=== PATIENT | male | born 1945 | race Caucasian/White ===

== ENCOUNTER → 2016-08-05 | Outpatient (REF) | payer MEDICARE ==
[~2016-08-05] MED LIST: ALEV220T26 PO; ASPI1TAB PO; CALC600T21 PO; DEPA250T32 PO; LISI10TA4 PO; MULTCAP PO; SIMV20TA2 PO; TYLE325T5 PO; VITA-130 PO; VITA500T53 PO; alleve PO
== END ==
LOC: M LAB REF 16:23
PROVIDERS: ATTEND Internal Medicine Medical Oncology
DX: R16.1 Splenomegaly, not elsewhere classified (principal); Z79.899 Other long term (current) drug therapy

== ENCOUNTER → 2016-09-21 | Outpatient (CLI) | payer MEDICARE ==
--- NOTE | 2016-09-21 23:45 | ECWPNPC ---
PATIENT NAME: STEPHAN GARCIA : 1945 GENDER: MALE VISIT DATE: 09/21/2016 DISCHARGE DATE: 09/21/16 1136 VISIT LOCKED DATE TIME: PHYSICIAN: RYAN DELEON RESOURCE: RYAN DELEON REASON FOR APPOINTMENT 1. LOW BACK-INCREASED PAIN HISTORY OF PRESENT ILLNESS HISTORY OF PRESENT ILLNESS: HERE FOR ROUTINE 3MOS F/U.PAIN IN LOW BACK HAS BEEN HIGH PAST MONTH.RATING PAIN VAS 8/10.DESCRIBES PAIN CONSTANT ACHING IN LOW BACK.PATIENT HAS BEEN DEALING WITH /ONCFOR NEWLY DIAGNOSED BLOOD DYSCRASIA REQUIRING PHLEBOTOMY X6 PAST 6 WEEKS.ALSO DEALT WITH KIDNEY STONES. FALL RISK SCREENING: SCREENING :NO FALLS IN THE PAST YEAR CURRENT MEDICATIONS TAKING LISINOPRIL 10 MG TABLET 1 TABLET ORALLY ONCE A DAY TAKING MELOXICAM 15 MG TABLET 1 TABLET ORALLY ONCE A DAY TAKING VITAMIN C 500 MG CAPSULE ORALLY DAILY TAKING ASPIRIN ADULT LOW STRENGTH 81 MG TABLET DELAYED RELEASE 1 TABLET ORALLY ONCE A DAY TAKING MULTIVITAMIN TABLET CHEWABLE ORALLY TAKING SIMVASTATIN 20 MG TABLET 1 TABLET IN THE EVENING ORALLY ONCE A DAY TAKING VITAMIN B12 500 MCG TABLET ORALLY TAKING CALCIUM 600 MG TABLET 1 TABLET WITH MEALS ORALLY DAILY TAKING TAMSULOSIN HCL 0.4 MG CAPSULE 1 CAPSULE ORALLY ONCE A DAY NOT-TAKING ALEVE 220 MG TABLET 1 STRIP ORALLY EVERY 12 HRS MEDICATION LIST REVIEWED AND RECONCILED WITH THE PATIENT PAST MEDICAL HISTORY ARTTHRITIS HYPERTENSION HYPERLIPIDEMIA LOW BACK PAIN ENLARGED SPLEEN BILATERAL KIDNEY STONES L ALLERGIES NONE SOCIAL HISTORY GENERAL: TOBACCO USE ARE YOU A:NONSMOKER LEARNING BARRIERS / SPECIAL NEEDS ORIENTED TO PLAN OF CARE: PATIENT, PAIN MANAGEMENT PATIENT, ORIENTED TO PLAN OF CARE: PATIENT, PAIN MANAGEMENT PATIENT. NEW PATIENT PAIN DIARY TODAY'S VISITNOTES FROM 0-10, WHAT LEVEL IS YOUR PAIN TODAY?0 PAIN CLINIC PFS, CLERGY, PUBLIC HEALTH REFERRALS PFS REFERRAL NEEDED?NO CLERGY REFERRAL NEEDED?NO PUBLIC HEALTH REFERRAL NEEDED?NO WAS THE PROVIDER NOTIFIED OF ANY PERTINENT INFO?NO PFS REFERRAL NEEDED?NO CLERGY REFERRAL NEEDED?NO PUBLIC HEALTH REFERRAL NEEDED?NO WAS THE PROVIDER NOTIFIED OF ANY PERTINENT INFO?NO REVIEW OF SYSTEMS CONSTITUTIONAL: ANY CHANGE IN YOUR MEDICAL CONDITION? YES, HAS AN ENLARGED SPLEEN AND HAS HAD 6 UNITS OF BLOOD DRAWN OFF SINCE 08/05/16 . CHILLS NO . FEVER NO . INFECTION: DO YOU HAVE NEW INFECTIONS? NO . DO YOU HAVE HISTORY OF MRSA? NO . MUSCULOSKELETAL: ANY NEW PATTERNS OF PAIN OR NUMBNESS? NO . GASTROENTEROLOGY: ANY NEW CHANGE IN BOWEL CONTROL? NO . GENITOURINARY: ANY NEW CHANGE IN BLADDER CONTROL? NO . IS THERE A CHANCE YOU COULD BE ? NO . HEMATOLOGY/LYMPH: DO YOU TAKE ANY BLOOD THINNERS? (FOR EXAMPLE- COUMADIN, PLAVIX, AGGRENOX, PLATEL, PRADAXA, OR XARELTO) NO . WHEN WAS YOUR LAST DOSE? DATE: TIME: . NEUROLOGY: HAVE YOU FALLEN IN THE PAST 6 MONTHS? NO . ANY NEW EXTREMITY NUMBNESS OR WEAKNESS? NO . CARDIOLOGY: DO YOU HAVE A PACEMAKER OR DEFIBRILLATOR? NO . RESPIRATORY: HAVE YOU BEEN SICK IN THE PAST WEEK? YES, COLD LAST WEEK, STARTED FEELING BETTER 09/18 . FEVER NO . FLU LIKE SYMPTOMS? NO . COUGH NO . INTEGUMENTARY: DO YOU HAVE ANY RASHES OR OPEN SORES? YES, BUTTOCKS . ALLERGIC/IMMUNO: ARE YOU ALLERGIC TO SHELLFISH OR IV DYE? NO . ANY NEW ALLERGIES? NO . PSYCHIATRIC: DO YOU HAVE THOUGHTS OF HURTING YOURSELF OR SOMEONE ELSE? NO . ARE YOU ABUSED, NEGLECTED, OR IN AN UNSAFE ENVIRONMENT? NO . ENDOCRINOLOGY: ARE YOU DIABETIC? NO . OTHER: DO YOU NEED ANY PRESCRIPTIONS? NO . IF YES, PLEASE LIST: ____ . ANY NEW PROBLEMS WITH YOUR MEDICATIONS? NO . WHEN DID YOU LAST EAT? ____ . WHEN DID YOU LAST DRINK? ____ . WHAT DID YOU LAST DRINK? ____ . NAME OF PERSON DRIVING YOU HOME? ____ . DO YOU HAVE ANY OTHER QUESTIONS OR CONCERNS YES WOULD LIKE TO DISCUSS ANOTHER INJECTION BUT NOT SURE IF POSSIBLE WITH ENLARGED SPLEEN . REVIEWED BY: PROVIDER: RYAN UREÑA . VITAL SIGNS WT 240.8 LBS, HT 68.5 IN, BMI 36.08 INDEX, BP 140/76 MM HG, HR 67 /MIN, RR 16 /MIN, TEMP 97.1 F, OXYGEN SAT % 94%, NA INITIALS SC 11:01, REVIEWED BY: ANN. EXAMINATION GENERAL EXAMINATION: LUNGS:LUNG SOUNDS ARE CLEAR. HEART:HEART RATE REGULAR. MUSCULOSKELETAL:*. MUSCULOSKELETAL:*, MUSCLE STRENGTH TESTING 5/5 BILATERAL, PALPATION: NEGATIVE FOR PAIN OVER L/S SPINE. NEGATIVE FOR PAIN OVER L/S PARSPINALS. 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 RECOMMEND REMOVING ALL THROW RUGS. 2. RECOMMEND NIGHT LIGHTS 3. RECOMMEND WEARING RUBBER SOLED SHOES AND TO NOT GO BAREFOOT. 4.. ADVISED TO CHANGE POSITION SLOWLY FROM SUPINE TO STANDING TO AVOID DIZZINESS. 5. ADVISED TO USE ASSISTIVE DEVICE SUCH CANE OR WALKER 6. USE LIFELINE SERVICES OR KEEP PORTABLE PHONE READILY AVAILABLE. PROCEDURE CODES FA211 ESTABILISHED PATIENT [facility] FACILITY CHARGE G8938 BMI CALC BUT PT NOT ELIG F/U PLAN G8783 BP SCR PRFRM RCMDD DEFIND SCR INTVL G8730 PAIN ASSESS POS TOOL F/U PLAN DOC 3016F PT SCRND UNHLTHY [place] USE 1123F ACP DISCUSS/DSCN MKR DOCD 1036F TOBACCO NON-USER 0518F FALL PLAN OF CARE DOCD G8427 DOC MEDS VERIFIED W/[place] 3288F FALL RISK ASSESSMENT DOCD DISPOSITION & COMMUNICATION FOLLOW UP 2 MONTHS ELECTRONICALLY SIGNED BY NIRANJAN DAVIES ON 09/21/2016 AT 01:02 PM EST DISCLAIMER : THIS IS A VISIT SUMMARY EXTRACTED FROM THE [employer] CHART. IT IS NOT A COPY OF THE [employer] PROGRESS NOTE. JANUARY
== END ==
LOC: M PAIN 10:40
PROVIDERS: ATTEND Nurse Practitioner Family
DX: Z09 Encounter for follow-up examination after completed treatment for conditions other than malignant neoplasm (principal); G89.29 Other chronic pain; M54.42 Lumbago with sciatica, left side; M48.06 Spinal stenosis, lumbar region; D75.9 Disease of blood and blood-forming organs, unspecified; M19.90 Unspecified osteoarthritis, unspecified site; I10 Essential (primary) hypertension; E78.5 Hyperlipidemia, unspecified; R16.1 Splenomegaly, not elsewhere classified; N20.0 Calculus of kidney; Z79.82 Long term (current) use of aspirin; Z79.899 Other long term (current) drug therapy

== ENCOUNTER → 2016-09-30 | Outpatient (REF) | payer MEDICARE ==
[2016-09-30 18:04] LABS: FERRITIN 6 NG/ML (26-388)
== END ==
LOC: M LAB REF 16:48
PROVIDERS: ATTEND Internal Medicine Medical Oncology
DX: D45 Polycythemia vera (principal)

== ENCOUNTER → 2016-10-28 | Outpatient (REF) | payer MEDICARE | LOC: M LAB REF 17:18 | PROVIDERS: ATTEND Internal Medicine Medical Oncology | DX: D45 Polycythemia vera (principal) ==

== ENCOUNTER → 2016-11-25 | Outpatient (CLI) | payer MEDICARE ==
--- NOTE | 2016-11-26 00:13 | ECWPNPC ---
PATIENT NAME: STEPHAN GARCIA : 1945 GENDER: MALE VISIT DATE: 11/25/2016 DISCHARGE DATE: 11/25/16 1111 VISIT LOCKED DATE TIME: PHYSICIAN: RYAN DELEON RESOURCE: RYAN DELEON REASON FOR APPOINTMENT 1. LOW BACK HISTORY OF PRESENT ILLNESS HISTORY OF PRESENT ILLNESS: PAIN THE PATIENT DESCRIBES THE PAIN... FALL RISK SCREENING: SCREENING :NO FALLS IN THE PAST YEAR CURRENT MEDICATIONS TAKING LISINOPRIL 10 MG TABLET 1 TABLET ORALLY ONCE A DAY TAKING MELOXICAM 15 MG TABLET 1 TABLET ORALLY ONCE A DAY TAKING VITAMIN C 500 MG CAPSULE ORALLY DAILY TAKING ASPIRIN ADULT LOW STRENGTH 81 MG TABLET DELAYED RELEASE 1 TABLET ORALLY ONCE A DAY TAKING MULTIVITAMIN TABLET CHEWABLE ORALLY TAKING SIMVASTATIN 20 MG TABLET 1 TABLET IN THE EVENING ORALLY ONCE A DAY TAKING VITAMIN B12 500 MCG TABLET 1 TABLET ORALLY DAILY TAKING CALCIUM 600 MG TABLET 1 TABLET WITH MEALS ORALLY DAILY TAKING TAMSULOSIN HCL 0.4 MG CAPSULE 1 CAPSULE ORALLY ONCE A DAY NOT-TAKING ALEVE 220 MG TABLET 1 STRIP ORALLY EVERY 12 HRS MEDICATION LIST REVIEWED AND RECONCILED WITH THE PATIENT PAST MEDICAL HISTORY ARTTHRITIS HYPERTENSION HYPERLIPIDEMIA LOW BACK PAIN ENLARGED SPLEEN BILATERAL KIDNEY STONES L ALLERGIES N.K.D.A. SOCIAL HISTORY GENERAL: PAIN CLINIC PFS, CLERGY, PUBLIC HEALTH REFERRALS CLERGY REFERRAL NEEDED?NO WAS THE PROVIDER NOTIFIED OF ANY PERTINENT INFO?NO PFS REFERRAL NEEDED?NO PUBLIC HEALTH REFERRAL NEEDED?NO PATIENT: ____. REVIEW OF SYSTEMS CONSTITUTIONAL: ANY CHANGE IN YOUR MEDICAL CONDITION? NO . CHILLS NO . FEVER NO . INFECTION: DO YOU HAVE NEW INFECTIONS? NO . DO YOU HAVE HISTORY OF MRSA? NO . MUSCULOSKELETAL: ANY NEW PATTERNS OF PAIN OR NUMBNESS? NO . GASTROENTEROLOGY: ANY NEW CHANGE IN BOWEL CONTROL? NO . GENITOURINARY: ANY NEW CHANGE IN BLADDER CONTROL? NO . IS THERE A CHANCE YOU COULD BE ? NO . HEMATOLOGY/LYMPH: DO YOU TAKE ANY BLOOD THINNERS? (FOR EXAMPLE- COUMADIN, PLAVIX, AGGRENOX, PLATEL, PRADAXA, OR XARELTO) NO . WHEN WAS YOUR LAST DOSE? DATE: TIME: . NEUROLOGY: HAVE YOU FALLEN IN THE PAST 6 MONTHS? NO . ANY NEW EXTREMITY NUMBNESS OR WEAKNESS? NO . CARDIOLOGY: DO YOU HAVE A PACEMAKER OR DEFIBRILLATOR? NO . RESPIRATORY: HAVE YOU BEEN SICK IN THE PAST WEEK? NO . FEVER NO . FLU LIKE SYMPTOMS? NO . COUGH NO . INTEGUMENTARY: DO YOU HAVE ANY RASHES OR OPEN SORES? NO . ALLERGIC/IMMUNO: ARE YOU ALLERGIC TO SHELLFISH OR IV DYE? NO . ANY NEW ALLERGIES? NO . PSYCHIATRIC: DO YOU HAVE THOUGHTS OF HURTING YOURSELF OR SOMEONE ELSE? NO . ARE YOU ABUSED, NEGLECTED, OR IN AN UNSAFE ENVIRONMENT? NO . ENDOCRINOLOGY: ARE YOU DIABETIC? NO . OTHER: DO YOU NEED ANY PRESCRIPTIONS? NO . IF YES, PLEASE LIST: ____ . ANY NEW PROBLEMS WITH YOUR MEDICATIONS? NO . WHEN DID YOU LAST EAT? ____ . WHEN DID YOU LAST DRINK? ____ . WHAT DID YOU LAST DRINK? ____ . NAME OF PERSON DRIVING YOU HOME? ____ . DO YOU HAVE ANY OTHER QUESTIONS OR CONCERNS NO . REVIEWED BY: PROVIDER: RYAN UREÑA . VITAL SIGNS WT 240.8 LBS, HT 68.5 IN, BMI 36.08 INDEX, BP 145/76 MM HG, HR 65 /MIN, RR 16 /MIN, TEMP 98.5 F, OXYGEN SAT % 94%, NA INITIALS SC 10:19, REVIEWED BY: CS. EXAMINATION GENERAL EXAMINATION: LUNGS:LUNG SOUNDS ARE CLEAR. HEART:HEART RATE REGULAR. MUSCULOSKELETAL:*, MUSCLE STRENGTH TESTING 5/5 BILATERAL, PALPATION: POSITIVE FOR PAIN OVER L/S SPINE. POSITIVE FOR PAIN OVER L/S PARASPINALS.TRIGGER POINTS ELICITED WITH PALPATION LUMBAR PARASPINAL. 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 REFERRAL TO:PHYSICAL THERAPIST REASON:MYOFSACIAL PAIN LOW BACK-MYOFASCIAL RELEASE-2X WK X 8WK LUMBAR SPINAL STENOSIS TRIGGER POINT 1-2 RYAN HEAD 11/25/2016 10:57:25 AM > BILATERAL LUMBAR PARASPINALS PROCEDURE CODES FA211 ESTABILISHED PATIENT [facility] FACILITY CHARGE DISPOSITION & COMMUNICATION FOLLOW UP 2WK POST (REASON: TRIGGER POINT INJECTION LUMBAR PARASPINALS) ELECTRONICALLY SIGNED BY NIRANJAN DAVIES ON 11/25/2016 AT 02:03 PM EDT DISCLAIMER : THIS IS A VISIT SUMMARY EXTRACTED FROM THE [employer] CHART. IT IS NOT A COPY OF THE [employer] PROGRESS NOTE. JANUARY
== END ==
LOC: M PAIN 10:40
PROVIDERS: ATTEND Nurse Practitioner Family
DX: G89.29 Other chronic pain (principal); M54.42 Lumbago with sciatica, left side; M48.06 Spinal stenosis, lumbar region; M79.1 Myalgia; M19.90 Unspecified osteoarthritis, unspecified site; I10 Essential (primary) hypertension; E78.5 Hyperlipidemia, unspecified; Z79.82 Long term (current) use of aspirin; Z79.899 Other long term (current) drug therapy

== ENCOUNTER → 2016-12-14 | Outpatient (CLI) | payer MEDICARE ==
[~2016-12-14] MED LIST changes: +BUPIVACAINE HCL 0.25% 10 ML VIAL As Ordered ONE; +BUPIVACAINE HCL 0.25% 30 ML VIAL As Ordered ONE; +TRIAMCINOLONE ACETONIDE SUSP 40 MG/ML VIAL (J3301) As Ordered ONE
--- NOTE | 2016-12-19 23:40 | ECWPNPC ---
PATIENT NAME: STEPHAN GARCIA : 1945 GENDER: MALE VISIT DATE: 12/14/2016 DISCHARGE DATE: 12/14/16 1510 VISIT LOCKED DATE TIME: PHYSICIAN: JESIKA PAIZ RESOURCE: JESIKA PAIZ REASON FOR APPOINTMENT 1. TPI HISTORY OF PRESENT ILLNESS HISTORY OF PRESENT ILLNESS: PAIN THE PATIENT DESCRIBES THE PAIN... FALL RISK SCREENING: SCREENING :NO FALLS IN THE PAST YEAR CURRENT MEDICATIONS TAKING LISINOPRIL 10 MG TABLET 1 TABLET ORALLY ONCE A DAY, NOTES: 12/14/16 AT 06 TAKING MELOXICAM 15 MG TABLET 1 TABLET ORALLY ONCE A DAY, NOTES: 12/14/16 AT 629 TAKING VITAMIN C 500 MG CAPSULE ORALLY DAILY, NOTES: 12/14/16 AT 629 TAKING ASPIRIN ADULT LOW STRENGTH 81 MG TABLET DELAYED RELEASE 1 TABLET ORALLY ONCE A DAY, NOTES: 12/14/16 AT 629 TAKING MULTIVITAMIN TABLET CHEWABLE ORALLY DAILY, NOTES: 12/14/16 AT 629 TAKING SIMVASTATIN 20 MG TABLET 1 TABLET IN THE EVENING ORALLY ONCE A DAY, NOTES: 12/13/16 AT 1999 TAKING VITAMIN B12 500 MCG TABLET 1 TABLET ORALLY DAILY, NOTES: 12/14/16 AT 629 TAKING CALCIUM 600 MG TABLET 1 TABLET WITH MEALS ORALLY DAILY, NOTES: 12/14/16 AT 629 TAKING TAMSULOSIN HCL 0.4 MG CAPSULE 1 CAPSULE ORALLY ONCE A DAY, NOTES: 12/14/16 AT 629 NOT-TAKING ALEVE 220 MG TABLET 1 STRIP ORALLY EVERY 12 HRS MEDICATION LIST REVIEWED AND RECONCILED WITH THE PATIENT PAST MEDICAL HISTORY ARTTHRITIS HYPERTENSION HYPERLIPIDEMIA LOW BACK PAIN ENLARGED SPLEEN BILATERAL KIDNEY STONES L ALLERGIES N.K.D.A. REVIEW OF SYSTEMS CONSTITUTIONAL: ANY CHANGE IN YOUR MEDICAL CONDITION? NO . CHILLS NO . FEVER NO . INFECTION: DO YOU HAVE NEW INFECTIONS? NO . DO YOU HAVE HISTORY OF MRSA? NO . MUSCULOSKELETAL: ANY NEW PATTERNS OF PAIN OR NUMBNESS? NO . GASTROENTEROLOGY: ANY NEW CHANGE IN BOWEL CONTROL? NO . GENITOURINARY: ANY NEW CHANGE IN BLADDER CONTROL? NO . IS THERE A CHANCE YOU COULD BE ? NO . HEMATOLOGY/LYMPH: DO YOU TAKE ANY BLOOD THINNERS? (FOR EXAMPLE- COUMADIN, PLAVIX, AGGRENOX, PLATEL, PRADAXA, OR XARELTO) NO . WHEN WAS YOUR LAST DOSE? DATE: TIME: . NEUROLOGY: HAVE YOU FALLEN IN THE PAST 6 MONTHS? NO . ANY NEW EXTREMITY NUMBNESS OR WEAKNESS? NO . CARDIOLOGY: DO YOU HAVE A PACEMAKER OR DEFIBRILLATOR? NO . RESPIRATORY: HAVE YOU BEEN SICK IN THE PAST WEEK? NO . FEVER NO . FLU LIKE SYMPTOMS? NO . COUGH NO . INTEGUMENTARY: DO YOU HAVE ANY RASHES OR OPEN SORES? NO . ALLERGIC/IMMUNO: ARE YOU ALLERGIC TO SHELLFISH OR IV DYE? NO . ANY NEW ALLERGIES? NO . PSYCHIATRIC: DO YOU HAVE THOUGHTS OF HURTING YOURSELF OR SOMEONE ELSE? NO . ARE YOU ABUSED, NEGLECTED, OR IN AN UNSAFE ENVIRONMENT? NO . ENDOCRINOLOGY: ARE YOU DIABETIC? NO . OTHER: DO YOU NEED ANY PRESCRIPTIONS? NO . IF YES, PLEASE LIST: ____ . ANY NEW PROBLEMS WITH YOUR MEDICATIONS? NO . WHEN DID YOU LAST EAT? 12/14/16 AT 0600 . WHEN DID YOU LAST DRINK? 12/14/16 AT 0630 . WHAT DID YOU LAST DRINK? WATER . NAME OF PERSON DRIVING YOU HOME? GORDON . DO YOU HAVE ANY OTHER QUESTIONS OR CONCERNS NO . REVIEWED BY: PROVIDER: . VITAL SIGNS WT 250.0 LBS, HT 68.5 IN, BMI 37.46 INDEX, BP 143/75 MM HG, HR 72 /MIN, RR 16 /MIN, TEMP 97.7 F, OXYGEN SAT % 96%, NA INITIALS TL 1325, REVIEWED BY: CS. ASSESSMENTS MYALGIA - M79.1 (PRIMARY) PROCEDURES PN TRIGGER POINT INJECTION WITH STEROIDS PRE PROCEDURE DIAGNOSIS 1. MYALGIA 2. PAIN AT BILATERAL LOWER BACK AREA POST PROCEDURE DIAGNOSIS 1. MYALGIA 2. PAIN AT BILATERAL LOWER BACK AREA PROCEDURE TRIGGER POINT INJECTION AT BILATERAL LOWER BACK AREA SURGEON DR. JESIKA PAIZ MANAGER AVIATION NONE ANESTHESIA LOCAL PRE PROCEDURE NOTE THE PATIENT HAS A HISTORY OF CHRONIC PAIN AT THE RIGHT AND LEFT LOWER BACK AREA. I EVALUATE THE PATIENT AND REVIEWED THE CHART. THERE IS EVIDENCE OF BANDS OF TISSUE WITH RESTRICTION OF MOVEMENT AND PRESENCE OF TRIGGER POINT AT THE AFFECTED AREA. I WENT OVER THE RISKS, ALTERNATIVES, AND BENEFITS ASSOCIATED WITH THIS PROCEDURE. THE PATIENT WOULD LIKE TO PROCEED AND GIVE CONSENT TO PERFORMED THE PROCEDURE. THE PATIENT DENIES UNEXPLAINABLE WEIGHT LOSS, FEVER, CHILLS, OR NEW CHANGES IN URINARY OR BOWEL CONTROL DESCRIPTION OF PROCEDURE THE PATIENT WAS BROUGHT TO THE PROCEDURE ROOM AND PLACED IN THE SITTING POSITION. THE AREA WAS CLEANED WITH ALCOHOL. THE PROCEDURE WAS DONE USING ASEPTIC STERILE TECHNIQUE. I CHECKED LATERALITY AND THE LEVEL WHERE THE PROCEDURE WAS GOING TO BE PERFORMED WITH THE PATIENT AND THE SUPPORTING STAFF AT THE MOMENT OF THE TIME OUT IN THE PROCEDURE ROOM. USING A 25-GAUGE NEEDLE, TRIGGER POINTS WERE INJECTED AT THE RIGHT AND LEFT LOWER BACK AREA WITH A TOTAL OF 40 ML OF BUPIVACAINE 0.25% AND KENALOG 40 MG. THERE WAS NO EVIDENCE OF BLOOD, PARESTHESIA OR CEREBROSPINAL FLUID DURING THE PROCEDURE. THE PATIENT WAS SENT TO THE RECOVERY ROOM. THE PATIENT WAS MOVING THE EXTREMITIES AND DOING WELL. THERE WAS NO COMPLICATION DURING THE PROCEDURE POST PROCEDURE NOTE THE PATIENT WILL BE SEEN IN A FOLLOW UP IN THE NEXT FEW WEEKS. INSTRUCTIONS WERE GIVEN, QUESTIONS WERE ANSWERED, AND THE PATIENT EXPRESSED UNDERSTANDING AND AGREES WITH THE PLAN. I, KIM VILLEGAS, DOCUMENTED THE ABOVE INFORMATION ACTING A SCRIBE FOR DR. PAIZ. I HAVE REVIEWED THE ABOVE DOCUMENT, WRITTEN BY KIM VALLEJO AND I VERIFY THAT IT IS ACCURATE PROCEDURE CODES 62779 INJ TRIGGER POINT 08/03 [facility] [place] & COMMUNICATION FOLLOW UP 3 WEEKS ELECTRONICALLY SIGNED BY JESIKA PAIZ MD ON 12/19/2016 AT 07:16 PM EDT DISCLAIMER : THIS IS A VISIT SUMMARY EXTRACTED FROM THE [employer] CHART. IT IS NOT A COPY OF THE [employer] PROGRESS NOTE. JANUARY
== END ==
LOC: M PAIN 13:20
PROVIDERS: ATTEND Anesthesiology
DX: G89.29 Other chronic pain (principal); M79.1 Myalgia; M54.5 Low back pain; M19.90 Unspecified osteoarthritis, unspecified site; I10 Essential (primary) hypertension; E78.5 Hyperlipidemia, unspecified; Z79.82 Long term (current) use of aspirin; Z79.899 Other long term (current) drug therapy
CPT/HCPCS: 20552; J3301

== ENCOUNTER → 2017-01-04 | Outpatient (CLI) | payer MEDICARE ==
[~2017-01-04] MED LIST changes: -BUPIVACAINE HCL 0.25% 10 ML VIAL As Ordered ONE; -BUPIVACAINE HCL 0.25% 30 ML VIAL As Ordered ONE; -TRIAMCINOLONE ACETONIDE SUSP 40 MG/ML VIAL (J3301) As Ordered ONE
--- NOTE | 2017-01-05 00:41 | ECWPNPC ---
PATIENT NAME: STEPHAN GARCIA : 1945 GENDER: MALE VISIT DATE: 01/04/2017 DISCHARGE DATE: 01/04/17 1056 VISIT LOCKED DATE TIME: PHYSICIAN: RYAN DELEON RESOURCE: RYAN DELEON REASON FOR APPOINTMENT 1. POST TPI HISTORY OF PRESENT ILLNESS HISTORY OF PRESENT ILLNESS: HERE FOR POST PROCEDURE F/U.HAD TPI 12-14-16 AND STARTED PT LAST MONTH.REALLY SHOWING NO IMPROVEMENT POST PROCEDURE AND WITH PT.RATING PAIN VAS 7/10.PAIN IS LOCATED ACROSS LOW BACK R>L.DISCUSSED MEDICATION AND TREATMENT OPTIONS.PAIN IS AGGREVATED BY RIDING CONVENTIONS ASSISTANT AND RELIEVED SOMEWHAT WITH REST. PAIN THE PATIENT DESCRIBES THE PAIN... FALL RISK SCREENING: SCREENING :NO FALLS IN THE PAST YEAR CURRENT MEDICATIONS TAKING LISINOPRIL 10 MG TABLET 1 TABLET ORALLY ONCE A DAY, NOTES: 12/14/16 AT 06 TAKING MELOXICAM 15 MG TABLET 1 TABLET ORALLY ONCE A DAY, NOTES: 12/14/16 AT 629 TAKING VITAMIN C 500 MG CAPSULE ORALLY DAILY, NOTES: 12/14/16 AT 629 TAKING ASPIRIN ADULT LOW STRENGTH 81 MG TABLET DELAYED RELEASE 1 TABLET ORALLY ONCE A DAY, NOTES: 12/14/16 AT 629 TAKING MULTIVITAMIN TABLET CHEWABLE ORALLY DAILY, NOTES: 12/14/16 AT 629 TAKING SIMVASTATIN 20 MG TABLET 1 TABLET IN THE EVENING ORALLY ONCE A DAY, NOTES: 12/13/16 AT 1999 TAKING VITAMIN B12 500 MCG TABLET 1 TABLET ORALLY DAILY, NOTES: 12/14/16 AT 629 TAKING CALCIUM 600 MG TABLET 1 TABLET WITH MEALS ORALLY DAILY, NOTES: 12/14/16 AT 629 TAKING TAMSULOSIN HCL 0.4 MG CAPSULE 1 CAPSULE ORALLY ONCE A DAY, NOTES: 12/14/16 AT 629 NOT-TAKING ALEVE 220 MG TABLET 1 STRIP ORALLY EVERY 12 HRS MEDICATION LIST REVIEWED AND RECONCILED WITH THE PATIENT PAST MEDICAL HISTORY ARTTHRITIS HYPERTENSION HYPERLIPIDEMIA LOW BACK PAIN ENLARGED SPLEEN BILATERAL KIDNEY STONES L ALLERGIES N.K.D.A. SURGICAL HISTORY TONSILLECTOMY & ADENOIDECTOMY L KNEE ARTHROSCOPY HOSPITALIZATION/MAJOR DIAGNOSTIC PROCEDURE T&A REVIEW OF SYSTEMS CONSTITUTIONAL: ANY CHANGE IN YOUR MEDICAL CONDITION? YES, PT STATES SPLEEN IS ENLARGED, DR ROBERTS IS COVERING HIM FOR THIS . CHILLS NO . FEVER NO . INFECTION: DO YOU HAVE NEW INFECTIONS? NO . DO YOU HAVE HISTORY OF MRSA? NO . MUSCULOSKELETAL: ANY NEW PATTERNS OF PAIN OR NUMBNESS? YES, PT STATES TPI DONE 12/14/16, PRE PROCEDURE PAIN WAS 8/10, POST PROCEDURE PAIN WAS 6-7/10 . GASTROENTEROLOGY: ANY NEW CHANGE IN BOWEL CONTROL? NO . GENITOURINARY: ANY NEW CHANGE IN BLADDER CONTROL? NO . IS THERE A CHANCE YOU COULD BE ? NO . HEMATOLOGY/LYMPH: DO YOU TAKE ANY BLOOD THINNERS? (FOR EXAMPLE- COUMADIN, PLAVIX, AGGRENOX, PLATEL, PRADAXA, OR XARELTO) NO . WHEN WAS YOUR LAST DOSE? DATE: TIME: . NEUROLOGY: HAVE YOU FALLEN IN THE PAST 6 MONTHS? NO . ANY NEW EXTREMITY NUMBNESS OR WEAKNESS? NO . CARDIOLOGY: DO YOU HAVE A PACEMAKER OR DEFIBRILLATOR? NO . RESPIRATORY: HAVE YOU BEEN SICK IN THE PAST WEEK? NO . FEVER NO . FLU LIKE SYMPTOMS? NO . COUGH NO . INTEGUMENTARY: DO YOU HAVE ANY RASHES OR OPEN SORES? NO . ALLERGIC/IMMUNO: ARE YOU ALLERGIC TO SHELLFISH OR IV DYE? NO . ANY NEW ALLERGIES? NO . PSYCHIATRIC: DO YOU HAVE THOUGHTS OF HURTING YOURSELF OR SOMEONE ELSE? NO . ARE YOU ABUSED, NEGLECTED, OR IN AN UNSAFE ENVIRONMENT? NO . ENDOCRINOLOGY: ARE YOU DIABETIC? NO . OTHER: DO YOU NEED ANY PRESCRIPTIONS? NO . IF YES, PLEASE LIST: ____ . ANY NEW PROBLEMS WITH YOUR MEDICATIONS? NO . WHEN DID YOU LAST EAT? ____ . WHEN DID YOU LAST DRINK? ____ . WHAT DID YOU LAST DRINK? ____ . NAME OF PERSON DRIVING YOU HOME? ____ . DO YOU HAVE ANY OTHER QUESTIONS OR CONCERNS NO . REVIEWED BY: PROVIDER: RYAN UREÑA . VITAL SIGNS WT 248 LBS, HT 68.5 IN, BMI 37.16 INDEX, BP 131/69 MM HG, HR 78 /MIN, RR 18 /MIN, TEMP 98.8 F, OXYGEN SAT % 94, SAFE IN ENV? (Y/N) Y, REVIEWED BY: EM. EXAMINATION GENERAL EXAMINATION: LUNGS:LUNG SOUNDS ARE CLEAR. HEART:HEART RATE REGULAR. MUSCULOSKELETAL:*, MUSCLE STRENGTH TESTING 5/5 BILATERAL, PALPATION: POSITIVE FOR PAIN OVER L/S SPINE. POSITIVE FOR PAIN OVER L/S PARASPINALS.TRIGGER POINTS ELICITED WITH PALPATION LUMBAR PARASPINAL. MRI L/S [id number]-[id number]. 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 MURPHY-ONCOLOGY , I AM GOING TO REQUEST A THERAPEUTIC LUMBAR FACET BLOCK L3/4-L4/5 BILAT. PROCEDURE CODES FA211 ESTABILISHED PATIENT [facility] CHARGE DISPOSITION & COMMUNICATION FOLLOW UP 6 WEEKS (REASON: , I AM GOING TO REQUEST A THERAPEUTIC LUMBAR FACET BLOCK L3/4-L4/5 BILAT.) ELECTRONICALLY SIGNED BY NIRANJAN DAVIES ON 01/04/2017 AT 01:22 PM EDT DISCLAIMER : THIS IS A VISIT SUMMARY EXTRACTED FROM THE [employer] CHART. IT IS NOT A COPY OF THE [employer] PROGRESS NOTE. JANUARY
== END ==
LOC: M PAIN 10:00
PROVIDERS: ATTEND Nurse Practitioner Family
DX: G89.29 Other chronic pain (principal); M54.42 Lumbago with sciatica, left side; M48.06 Spinal stenosis, lumbar region; M79.1 Myalgia; M19.90 Unspecified osteoarthritis, unspecified site; I10 Essential (primary) hypertension; E78.5 Hyperlipidemia, unspecified; Z88.8 Allergy status to other drugs, medicaments and biological substances; Z79.82 Long term (current) use of aspirin; Z79.899 Other long term (current) drug therapy

== ENCOUNTER → 2017-01-13 | Outpatient (CLI) | payer MEDICARE ==
[~2017-01-13] MED LIST changes: +BUPIVACAINE HCL 0.25% 30 ML VIAL As Ordered ONE; -CALC600T21 PO; +CALC600T60 PO; +ISOVUE-M 300 61% 15ML VIAL (Q9967) As Ordered ONE; +LIDOCAINE 1% SDV INJ 30 ML VIAL As Ordered ONE; +TRIAMCINOLONE ACETONIDE SUSP 40 MG/ML VIAL (J3301) As Ordered ONE; -VITA-130 PO; +VITA500T PO
--- NOTE | 2017-01-13 17:00 | REP ---
FACET BLOCK: The images were reviewed with Dr. Penaloza. The patient has a history of low back pain. The portable C-ARM was provided in the OR for Dr. Rodas for fluoroscopic guidance. 2 intraoperative fluoroscopic spot films were obtained for needle placement verification for bilateral lumbar facet injection. The films are on the PACs system and are available for review. 52 seconds of fluoroscopic time was utilized for this procedure. Reviewed by YONNY Otero 01/14/2017 03:11 PEdited and Signed by Chance Penaloza MD 01/14/2017 04:32 P
--- NOTE | 2017-01-22 00:13 | ECWPNPC ---
PATIENT NAME: STEPHAN GARCIA : 1945 GENDER: MALE VISIT DATE: 01/13/2017 DISCHARGE DATE: 01/13/17 1025 VISIT LOCKED DATE TIME: PHYSICIAN: JESIKA PAIZ RESOURCE: JESIKA PAIZ REASON FOR APPOINTMENT 1. LUMBAR FACET BILATERAL HISTORY OF PRESENT ILLNESS HISTORY OF PRESENT ILLNESS: PAIN THE PATIENT DESCRIBES THE PAIN... FALL RISK SCREENING: SCREENING :NO FALLS IN THE PAST YEAR CURRENT MEDICATIONS TAKING LISINOPRIL 10 MG TABLET 1 TABLET ORALLY ONCE A DAY, NOTES: 01/13/17629 TAKING MELOXICAM 15 MG TABLET 1 TABLET ORALLY ONCE A DAY, NOTES: 01/13/17629 TAKING VITAMIN C 500 MG CAPSULE ORALLY DAILY, NOTES: 01/13/17629 TAKING ASPIRIN ADULT LOW STRENGTH 81 MG TABLET DELAYED RELEASE 1 TABLET ORALLY ONCE A DAY, NOTES: 01/13/17629 TAKING MULTIVITAMIN TABLET CHEWABLE ORALLY DAILY, NOTES: 01/13/17629 TAKING SIMVASTATIN 20 MG TABLET 1 TABLET IN THE EVENING ORALLY ONCE A DAY, NOTES: 01/12/172099 TAKING VITAMIN B12 500 MCG TABLET 1 TABLET ORALLY DAILY, NOTES: 01/13/17629 TAKING CALCIUM 600 MG TABLET 1 TABLET WITH MEALS ORALLY DAILY, NOTES: 01/13/17629 TAKING TAMSULOSIN HCL 0.4 MG CAPSULE 1 CAPSULE ORALLY ONCE A DAY, NOTES: 01/12/17629 NOT-TAKING CYMBALTA 30 MG CAPSULE DELAYED RELEASE PARTICLES 1 CAPSULE ORALLY DAILY NOT-TAKING ALEVE 220 MG TABLET 1 STRIP ORALLY EVERY 12 HRS MEDICATION LIST REVIEWED AND RECONCILED WITH THE PATIENT PAST MEDICAL HISTORY ARTTHRITIS HYPERTENSION HYPERLIPIDEMIA LOW BACK PAIN ENLARGED SPLEEN BILATERAL KIDNEY STONES L ALLERGIES CYMBALTA: HYPER AND JITTERY: SIDE EFFECTS REVIEW OF SYSTEMS REVIEWED BY: PROVIDER: . CONSTITUTIONAL: ANY CHANGE IN YOUR MEDICAL CONDITION? NO . CHILLS NO . FEVER NO . INFECTION: DO YOU HAVE NEW INFECTIONS? NO . DO YOU HAVE HISTORY OF MRSA? NO . MUSCULOSKELETAL: ANY NEW PATTERNS OF PAIN OR NUMBNESS? NO . GASTROENTEROLOGY: ANY NEW CHANGE IN BOWEL CONTROL? NO . GENITOURINARY: ANY NEW CHANGE IN BLADDER CONTROL? NO . IS THERE A CHANCE YOU COULD BE ? NO . HEMATOLOGY/LYMPH: DO YOU TAKE ANY BLOOD THINNERS? (FOR EXAMPLE- COUMADIN, PLAVIX, AGGRENOX, PLATEL, PRADAXA, OR XARELTO) NO . WHEN WAS YOUR LAST DOSE? DATE: TIME: . NEUROLOGY: HAVE YOU FALLEN IN THE PAST 6 MONTHS? NO . ANY NEW EXTREMITY NUMBNESS OR WEAKNESS? NO . CARDIOLOGY: DO YOU HAVE A PACEMAKER OR DEFIBRILLATOR? NO . RESPIRATORY: HAVE YOU BEEN SICK IN THE PAST WEEK? NO . FEVER NO . FLU LIKE SYMPTOMS? NO . COUGH NO . INTEGUMENTARY: DO YOU HAVE ANY RASHES OR OPEN SORES? NO . ALLERGIC/IMMUNO: ARE YOU ALLERGIC TO SHELLFISH OR IV DYE? NO . ANY NEW ALLERGIES? NO . PSYCHIATRIC: DO YOU HAVE THOUGHTS OF HURTING YOURSELF OR SOMEONE ELSE? NO . ARE YOU ABUSED, NEGLECTED, OR IN AN UNSAFE ENVIRONMENT? NO . ENDOCRINOLOGY: ARE YOU DIABETIC? NO . OTHER: DO YOU NEED ANY PRESCRIPTIONS? NO . IF YES, PLEASE LIST: ____ . ANY NEW PROBLEMS WITH YOUR MEDICATIONS? YES, HE STOPPED THE CYMBALTA BECAUSE IT MADE HIM HYPER AND JITTERY. . WHEN DID YOU LAST EAT? 01/12/17 2100 . WHEN DID YOU LAST DRINK? 01/13/17 0630 . WHAT DID YOU LAST DRINK? WATER . NAME OF PERSON DRIVING YOU HOME? GORDON . DO YOU HAVE ANY OTHER QUESTIONS OR CONCERNS NO . VITAL SIGNS WT 244 LBS, HT 68.5 IN, BMI 36.56 INDEX, BP 143/68 MM HG, HR 62 /MIN, RR 18 /MIN, TEMP 98.6 F, OXYGEN SAT % 96%, NA INITIALS SC 08:49, REVIEWED BY: AD. ASSESSMENTS SPONDYLOSIS WITHOUT MYELOPATHY OR RADICULOPATHY, LUMBAR REGION - M47.816 (PRIMARY) SPONDYLOSIS WITHOUT MYELOPATHY OR RADICULOPATHY, LUMBOSACRAL REGION - M47.817 PROCEDURES PN LUMBAR FACET BLOCK THERAPEUTIC PRE PROCEDURE DIAGNOSIS LUMBAR SPONDYLOSIS, LUMBOSACRAL SPONDYLOSIS POST PROCEDURE DIAGNOSIS LUMBAR SPONDYLOSIS, LUMBOSACRAL SPONDYLOSIS PROCEDURE BILATERAL L4-L5 AND BILATERAL L5-S1 LUMBAR FACET THERAPEUTIC BLOCK SURGEON DR. JESIKA PAIZ MORTGAGE PROFESSIONAL NONE ANESTHESIA LOCAL PRE PROCEDURE NOTE THE PATIENT HAS A HISTORY OF CHRONIC LOW BACK PAIN. I EVALUATE THE PATIENT AND REVIEWED THE CHART. I WENT OVER THE RISKS, ALTERNATIVES, AND BENEFITS ASSOCIATED WITH THIS PROCEDURE. THE PATIENT WOULD LIKE TO PROCEED AND GIVE CONSENT TO PERFORMED THE PROCEDURE. THE PATIENT DENIES UNEXPLAINABLE WEIGHT LOSS, FEVER, CHILLS, OR NEW CHANGES IN URINARY OR BOWEL CONTROL DESCRIPTION OF PROCEDURE THE PATIENT WAS BROUGHT TO THE PROCEDURE ROOM AND PLACED IN THE PRONE POSITION. THE LUMBOSACRAL AREA WAS CLEANED WITH CHLORAPREP SOLUTION AND DRAPED ASEPTICALLY. THE PROCEDURE WAS DONE UNDER STERILE CONDITIONS. I CHECKED LATERALITY AND THE LEVEL WHERE THE PROCEDURE WAS GOING TO BE PERFORMED WITH THE PATIENT AND THE SUPPORTING STAFF AT THE MOMENT OF THE TIME OUT IN THE PROCEDURE ROOM. UNDER FLUOROSCOPIC GUIDANCE, THE TARGET POINT WAS SELECTED AT THE RIGHT AND LEFT L4-L5 AND RIGHT AND LEFT L5-S1 FACET JOINT. TARGET POINT WAS SELECTED AFTER LATERAL ROTATION AND TILT OF THE MAGNIFIER OF THE C-ARM. LIDOCAINE 0.5% WAS USED TO NUMB THE SKIN AND THE SUBCUTANEOUS TISSUE BELOW IT. SPINAL NEEDLES, 22-GAUGE, WERE ADVANCED UNDER FLUOROSCOPIC GUIDANCE AND FOLLOWING PATIENT FEEDBACK UNTIL THE TARGETS WERE TOUCHED. THE POSITION OF THE NEEDLES WAS VERIFIED WITH AP AND LATERAL VIEWS. AFTER PROPER POSITION OF THE NEEDLES WAS ACHIEVED, ISOVUE-M DYE 30% 0.1 ML WAS INJECTED SHOWING ADEQUATE SPREAD OF THE DYE. THEN A SOLUTION OF 1.9 ML OF BUPIVACAINE 0.125% OF KENALOG 10 MG WAS INJECTED AT EACH SITE. THERE WAS NO EVIDENCE OF BLOOD, PARESTHESIA OR CEREBROSPINAL FLUID DURING THE PROCEDURE. THE PATIENT WAS SENT TO THE RECOVERY ROOM. THE PATIENT WAS MOVING THE EXTREMITIES AND DOING WELL. THERE WAS NO COMPLICATION DURING THE PROCEDURE. FLUOROSCOPY TIME WAS 52 SECONDS POST PROCEDURE NOTE THE PATIENT WILL BE SEEN IN A FOLLOW UP IN THE NEXT FEW WEEKS. INSTRUCTIONS WERE GIVEN, QUESTIONS WERE ANSWERED, AND THE PATIENT EXPRESSED UNDERSTANDING AND AGREES WITH THE PLAN. I, KIM VILLEGAS, DOCUMENTED THE ABOVE INFORMATION ACTING A SCRIBE FOR DR. PAIZ. I HAVE REVIEWED THE ABOVE DOCUMENT, WRITTEN BY KIM VILLEGAS SCRIBReal AND I VERIFY THAT IT IS ACCURATE DIAGNOSTIC IMAGING [facility] FACET BLOCK (PAIN)[id number] PROCEDURE CODES 56466 INJ PARAVERT F JNT L/S 1 LEV 10698 INJ PARAVERT F JNT L/S 2 LEV 6045F RADXPS IN END LEUE7TALEV PXD DISPOSITION & COMMUNICATION FOLLOW UP 3 WEEKS ELECTRONICALLY SIGNED BY JESIKA PAIZ MD ON 01/21/2017 AT 12:23 PM EDT DISCLAIMER : THIS IS A VISIT SUMMARY EXTRACTED FROM THE [employer] CHART. IT IS NOT A COPY OF THE [employer] PROGRESS NOTE. MTDD
== END ==
LOC: M PAIN 09:00
PROVIDERS: ATTEND Anesthesiology
DX: G89.29 Other chronic pain (principal); M47.816 Spondylosis without myelopathy or radiculopathy, lumbar region; M47.817 Spondylosis without myelopathy or radiculopathy, lumbosacral region; I10 Essential (primary) hypertension; E78.5 Hyperlipidemia, unspecified; M19.90 Unspecified osteoarthritis, unspecified site; Z88.8 Allergy status to other drugs, medicaments and biological substances; Z79.82 Long term (current) use of aspirin; Z79.899 Other long term (current) drug therapy
CPT/HCPCS: 64493; 64494; J3301; Q9967

== ENCOUNTER → 2017-01-28 | Outpatient (REF) | payer MEDICARE ==
[~2017-01-28] MED LIST changes: -BUPIVACAINE HCL 0.25% 30 ML VIAL As Ordered ONE; -ISOVUE-M 300 61% 15ML VIAL (Q9967) As Ordered ONE; -LIDOCAINE 1% SDV INJ 30 ML VIAL As Ordered ONE; -TRIAMCINOLONE ACETONIDE SUSP 40 MG/ML VIAL (J3301) As Ordered ONE
[2017-01-28 17:34] LABS: PERCENT SATURATION 7.5 % (19.7-37.4)
== END ==
LOC: M LAB REF 16:52
PROVIDERS: ATTEND Internal Medicine Medical Oncology
DX: D45 Polycythemia vera (principal)

== ENCOUNTER → 2017-02-09 | Outpatient (CLI) | payer MEDICARE ==
--- NOTE | 2017-02-10 00:55 | ECWPNPC ---
PATIENT NAME: STEPHAN GARCIA : 1945 GENDER: MALE VISIT DATE: 02/09/2017 DISCHARGE DATE: 02/09/17 1046 VISIT LOCKED DATE TIME: PHYSICIAN: RYAN DELEON RESOURCE: RYAN DELEON REASON FOR APPOINTMENT 1. POST FACET BLOCK HISTORY OF PRESENT ILLNESS HISTORY OF PRESENT ILLNESS: HERE FOR POST PROCEDURE F/U.HAD BILAT.L4/5-L5/S1 01-13-17 .HAVING SOME PAIN RELIEF THAT CONTINUES TODAY.STATES PAIN IS LESS INTENSE AND SHARP SINCE PROCEDURE.RATING PAIN VAS 7/10.PAIN IS LOCATED ACROSS LOW BACK R>L.DISCUSSED MEDICATION AND TREATMENT OPTIONS.PAIN IS AGGREVATED BY RIDING ACCOUNT CLASSIFICATION CLERK AND RELIEVED SOMEWHAT WITH REST. PAIN THE PATIENT DESCRIBES THE PAIN... THE PATIENT DESCRIBES THE PAIN... FALL RISK SCREENING: SCREENING :NO FALLS IN THE PAST YEAR CURRENT MEDICATIONS TAKING LISINOPRIL 10 MG TABLET 1 TABLET ORALLY ONCE A DAY TAKING MELOXICAM 15 MG TABLET 1 TABLET ORALLY ONCE A DAY TAKING VITAMIN C 500 MG CAPSULE ORALLY DAILY TAKING ASPIRIN ADULT LOW STRENGTH 81 MG TABLET DELAYED RELEASE 1 TABLET ORALLY ONCE A DAY TAKING MULTIVITAMIN TABLET CHEWABLE ORALLY DAILY TAKING SIMVASTATIN 20 MG TABLET 1 TABLET IN THE EVENING ORALLY ONCE A DAY TAKING VITAMIN B12 500 MCG TABLET 1 TABLET ORALLY DAILY TAKING CALCIUM 600 MG TABLET 1 TABLET WITH MEALS ORALLY DAILY TAKING TAMSULOSIN HCL 0.4 MG CAPSULE 1 CAPSULE ORALLY ONCE A DAY NOT-TAKING CYMBALTA 30 MG CAPSULE DELAYED RELEASE PARTICLES 1 CAPSULE ORALLY DAILY NOT-TAKING ALEVE 220 MG TABLET 1 STRIP ORALLY EVERY 12 HRS MEDICATION LIST REVIEWED AND RECONCILED WITH THE PATIENT PAST MEDICAL HISTORY ARTTHRITIS HYPERTENSION HYPERLIPIDEMIA LOW BACK PAIN ENLARGED SPLEEN BILATERAL KIDNEY STONES L ALLERGIES CYMBALTA: HYPER AND JITTERY: SIDE EFFECTS SURGICAL HISTORY TONSILLECTOMY & ADENOIDECTOMY L KNEE ARTHROSCOPY HOSPITALIZATION/MAJOR DIAGNOSTIC PROCEDURE T&A REVIEW OF SYSTEMS REVIEWED BY: PROVIDER: RYAN UREÑA . CONSTITUTIONAL: ANY CHANGE IN YOUR MEDICAL CONDITION? NO . CHILLS NO . FEVER NO . INFECTION: DO YOU HAVE NEW INFECTIONS? NO . DO YOU HAVE HISTORY OF MRSA? NO . MUSCULOSKELETAL: ANY NEW PATTERNS OF PAIN OR NUMBNESS? YES, PT C/O PHYLLIS HORSE CRAMPS TO BILAT LOWER LEGS APPROX 3 TIMES PER WEEK AT NIGHT FOR PAST 2 MONTHS. . GASTROENTEROLOGY: ANY NEW CHANGE IN BOWEL CONTROL? NO . GENITOURINARY: ANY NEW CHANGE IN BLADDER CONTROL? NO . IS THERE A CHANCE YOU COULD BE ? NO . HEMATOLOGY/LYMPH: DO YOU TAKE ANY BLOOD THINNERS? (FOR EXAMPLE- COUMADIN, PLAVIX, AGGRENOX, PLATEL, PRADAXA, OR XARELTO) NO . WHEN WAS YOUR LAST DOSE? DATE: TIME: . NEUROLOGY: HAVE YOU FALLEN IN THE PAST 6 MONTHS? NO . ANY NEW EXTREMITY NUMBNESS OR WEAKNESS? NO . CARDIOLOGY: DO YOU HAVE A PACEMAKER OR DEFIBRILLATOR? NO . RESPIRATORY: HAVE YOU BEEN SICK IN THE PAST WEEK? NO . FEVER NO . FLU LIKE SYMPTOMS? NO . COUGH NO . INTEGUMENTARY: DO YOU HAVE ANY RASHES OR OPEN SORES? NO . ALLERGIC/IMMUNO: ARE YOU ALLERGIC TO SHELLFISH OR IV DYE? NO . ANY NEW ALLERGIES? NO . PSYCHIATRIC: DO YOU HAVE THOUGHTS OF HURTING YOURSELF OR SOMEONE ELSE? NO . ARE YOU ABUSED, NEGLECTED, OR IN AN UNSAFE ENVIRONMENT? NO . ENDOCRINOLOGY: ARE YOU DIABETIC? NO . OTHER: DO YOU NEED ANY PRESCRIPTIONS? NO . IF YES, PLEASE LIST: ____ . ANY NEW PROBLEMS WITH YOUR MEDICATIONS? NO . WHEN DID YOU LAST EAT? ____ . WHEN DID YOU LAST DRINK? ____ . WHAT DID YOU LAST DRINK? ____ . NAME OF PERSON DRIVING YOU HOME? ____ . DO YOU HAVE ANY OTHER QUESTIONS OR CONCERNS NO . VITAL SIGNS WT 246 LBS, HT 68.5 IN, BMI 36.86 INDEX, BP 139/79 MM HG, HR 67 /MIN, RR 16 /MIN, TEMP 98.1 F, OXYGEN SAT % 96, SAFE IN ENV? (Y/N) Y, REVIEWED BY: EM. EXAMINATION GENERAL EXAMINATION: LUNGS:LUNG SOUNDS ARE CLEAR. HEART:HEART RATE REGULAR. MUSCULOSKELETAL:*, MUSCLE STRENGTH TESTING 5/5 BILATERAL, PALPATION: POSITIVE FOR PAIN OVER L/S SPINE. SPECIFIC POINT TENDERNESS NOTED OVER RIGHT L3/4-L4/5 LUMBAR FACET WITH FACET LOADING. MRI L/S [id number]. 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 PROCEDURE CODES FA211 ESTABILISHED PATIENT [facility] FACILITY CHARGE G8176 PAIN ASSESS POS TOOL F/U PLAN DOC G8427 DOC MEDS VERIFIED W/PT OR RE DISPOSITION & COMMUNICATION FOLLOW UP 2WKPOST (REASON: RIGHT L3/4-L4/5 DIAGNOSTIC LUMBAR FACET BLOCK #1) ELECTRONICALLY SIGNED BY NIRANJAN DAVIES ON 02/09/2017 AT 04:10 PM EDT DISCLAIMER : THIS IS A VISIT SUMMARY EXTRACTED FROM THE [email or web address] CHART. IT IS NOT A COPY OF THE [email or web address] PROGRESS NOTE. MTDD
== END ==
LOC: M PAIN 09:20
PROVIDERS: ATTEND Nurse Practitioner Family
DX: G89.29 Other chronic pain (principal); M48.06 Spinal stenosis, lumbar region; M47.816 Spondylosis without myelopathy or radiculopathy, lumbar region; M19.90 Unspecified osteoarthritis, unspecified site; I10 Essential (primary) hypertension; E78.5 Hyperlipidemia, unspecified; Z88.8 Allergy status to other drugs, medicaments and biological substances; Z79.52 Long term (current) use of systemic steroids; Z79.899 Other long term (current) drug therapy

== ENCOUNTER → 2017-02-23 | Outpatient (CLI) | payer MEDICARE ==
[~2017-02-23] MED LIST changes: +BUPIVACAINE HCL 0.25% 30 ML VIAL As Ordered ONE; +ISOVUE-M 300 61% 15ML VIAL (Q9967) As Ordered ONE; +LIDOCAINE 1% SDV INJ 30 ML VIAL As Ordered ONE
--- NOTE | 2017-02-23 17:36 | REP ---
FACET BLOCK: The images were reviewed with Dr. Penaloza. The patient has a history of low back pain. The portable C-ARM was provided in the OR for Dr. Rodas for fluoroscopic guidance. 2 intraoperative fluoroscopic spot films were obtained for needle placement verification for right lumbar facet injection. The films are on the PACs system and are available for review. 23 seconds of fluoroscopic time was utilized for this procedure. Reviewed by YONNY Otero 02/24/2017 01:41 PEdited and Signed by Chance Penaloza MD 02/25/2017 05:38 P
--- NOTE | 2017-03-11 00:14 | ECWPNPC ---
PATIENT NAME: STEPHAN GARCIA : 1945 GENDER: MALE VISIT DATE: 02/23/2017 DISCHARGE DATE: 02/23/17 1157 VISIT LOCKED DATE TIME: PHYSICIAN: JESIKA PAIZ RESOURCE: JESIKA PAIZ REASON FOR APPOINTMENT 1. LUMBAR FACET #1 HISTORY OF PRESENT ILLNESS HISTORY OF PRESENT ILLNESS: PAIN THE PATIENT DESCRIBES THE PAIN... FALL RISK SCREENING: SCREENING :NO FALLS IN THE PAST YEAR CURRENT MEDICATIONS TAKING LISINOPRIL 10 MG TABLET 1 TABLET ORALLY ONCE A DAY, NOTES: 69902/23/17 TAKING MELOXICAM 15 MG TABLET 1 TABLET ORALLY ONCE A DAY, NOTES: 69902/23/17 TAKING VITAMIN C 500 MG CAPSULE ORALLY DAILY, NOTES: 69902/23/17 TAKING ASPIRIN ADULT LOW STRENGTH 81 MG TABLET DELAYED RELEASE 1 TABLET ORALLY ONCE A DAY, NOTES: 69902/23/17 TAKING MULTIVITAMIN TABLET CHEWABLE ORALLY DAILY, NOTES: 69902/23/17 TAKING SIMVASTATIN 20 MG TABLET 1 TABLET IN THE EVENING ORALLY ONCE A DAY, NOTES: 02/22 8PM TAKING VITAMIN B12 500 MCG TABLET 1 TABLET ORALLY DAILY, NOTES: 69902/23/17 TAKING CALCIUM 600 MG TABLET 1 TABLET WITH MEALS ORALLY DAILY, NOTES: 69902/23/17 TAKING TAMSULOSIN HCL 0.4 MG CAPSULE 1 CAPSULE ORALLY ONCE A DAY, NOTES: 69902/23/17 NOT-TAKING CYMBALTA 30 MG CAPSULE DELAYED RELEASE PARTICLES 1 CAPSULE ORALLY DAILY NOT-TAKING ALEVE 220 MG TABLET 1 STRIP ORALLY EVERY 12 HRS MEDICATION LIST REVIEWED AND RECONCILED WITH THE PATIENT PAST MEDICAL HISTORY ARTTHRITIS HYPERTENSION HYPERLIPIDEMIA LOW BACK PAIN ENLARGED SPLEEN BILATERAL KIDNEY STONES L ALLERGIES CYMBALTA: HYPER AND JITTERY: SIDE EFFECTS REVIEW OF SYSTEMS REVIEWED BY: PROVIDER: . CONSTITUTIONAL: ANY CHANGE IN YOUR MEDICAL CONDITION? NO . CHILLS NO . FEVER NO . INFECTION: DO YOU HAVE NEW INFECTIONS? NO . DO YOU HAVE HISTORY OF MRSA? NO . MUSCULOSKELETAL: ANY NEW PATTERNS OF PAIN OR NUMBNESS? NO . GASTROENTEROLOGY: ANY NEW CHANGE IN BOWEL CONTROL? NO . GENITOURINARY: ANY NEW CHANGE IN BLADDER CONTROL? NO . IS THERE A CHANCE YOU COULD BE ? NO . HEMATOLOGY/LYMPH: DO YOU TAKE ANY BLOOD THINNERS? (FOR EXAMPLE- COUMADIN, PLAVIX, AGGRENOX, PLATEL, PRADAXA, OR XARELTO) NO . WHEN WAS YOUR LAST DOSE? DATE: TIME: . NEUROLOGY: HAVE YOU FALLEN IN THE PAST 6 MONTHS? NO . ANY NEW EXTREMITY NUMBNESS OR WEAKNESS? NO . CARDIOLOGY: DO YOU HAVE A PACEMAKER OR DEFIBRILLATOR? NO . RESPIRATORY: HAVE YOU BEEN SICK IN THE PAST WEEK? NO . FEVER NO . FLU LIKE SYMPTOMS? NO . COUGH NO . INTEGUMENTARY: DO YOU HAVE ANY RASHES OR OPEN SORES? NO . ALLERGIC/IMMUNO: ARE YOU ALLERGIC TO SHELLFISH OR IV DYE? NO . ANY NEW ALLERGIES? NO . PSYCHIATRIC: DO YOU HAVE THOUGHTS OF HURTING YOURSELF OR SOMEONE ELSE? NO . ARE YOU ABUSED, NEGLECTED, OR IN AN UNSAFE ENVIRONMENT? NO . ENDOCRINOLOGY: ARE YOU DIABETIC? NO . OTHER: DO YOU NEED ANY PRESCRIPTIONS? NO . IF YES, PLEASE LIST: ____ . ANY NEW PROBLEMS WITH YOUR MEDICATIONS? NO . WHEN DID YOU LAST EAT? YESTERDAY . WHEN DID YOU LAST DRINK? 0700 TODAY . WHAT DID YOU LAST DRINK? WATER . NAME OF PERSON DRIVING YOU HOME? ____ . DO YOU HAVE ANY OTHER QUESTIONS OR CONCERNS NO . VITAL SIGNS WT 249.0 LBS, HT 68.5 IN, BMI 37.31 INDEX, BP 135/71 MM HG, HR 72 /MIN, RR 16 /MIN, TEMP 97.2 F, OXYGEN SAT % 96%, NA INITIALS TL 1013, REVIEWED BY: NL. ASSESSMENTS SPONDYLOSIS WITHOUT MYELOPATHY OR RADICULOPATHY, LUMBAR REGION - M47.816 (PRIMARY) SPONDYLOSIS WITHOUT MYELOPATHY OR RADICULOPATHY, LUMBOSACRAL REGION - M47.817 PROCEDURES PN LUMBAR FACET BLOCK DIAGNOSTIC PRE PROCEDURE DIAGNOSIS LUMBAR SPONDYLOSIS, LUMBOSACRAL SPONDYLOSIS POST PROCEDURE DIAGNOSIS LUMBAR SPONDYLOSIS, LUMBOSACRAL SPONDYLOSIS PROCEDURE RIGHT L4-L5 AND BILATERAL L5-S1 FACET BLOCK DIAGNOSTIC NUMBER [address] JESIKA PAIZ EDITOR NEWSPAPER NONE ANESTHESIA LOCAL PRE PROCEDURE NOTE THE PATIENT WITH HISTORY OF CHRONIC LOW BACK PAIN. I EVALUATED THE PATIENT AND REVIEWED THE CHART. I WENT OVER THE RISKS, ALTERNATIVES, AND BENEFITS ASSOCIATED WITH THIS PROCEDURE. THE PATIENT WOULD LIKE TO PROCEED AND GAVE CONSENT TO PERFORM THE PROCEDURE. AGREED WITH THE PATIENT WE ARE DOING THIS PROCEDURE TO DETERMINE IF THE PATIENT IS A CANDIDATE FOR A RADIOFREQUENCY ABLATION OF THE FACETS JOINTS. THE PATIENT DENIES UNEXPLAINABLE WEIGHT LOSS, FEVER, CHILLS, OR NEW CHANGES IN URINARY OR BOWEL CONTROL DESCRIPTION OF PROCEDURE THE PATIENT WAS BROUGHT TO THE PROCEDURE ROOM AND PLACED IN THE PRONE POSITION. THE LUMBOSACRAL AREA WAS CLEANED WITH CHLORAPREP SOLUTION AND DRAPED ASEPTICALLY. THE PROCEDURE WAS DONE UNDER STERILE CONDITIONS. I CHECKED LATERALITY AND THE LEVEL WHERE THE PROCEDURE WAS GOING TO BE PERFORMED WITH THE PATIENT AND THE SUPPORTING STAFF AT THE MOMENT OF THE TIME OUT IN THE PROCEDURE ROOM. UNDER FLUOROSCOPIC GUIDANCE, TARGETS WERE SELECTED AT THE INTERSECTION OF THE RIGHT TRANSVERSE PROCESS OF L4, L5 AND ALA OF S1 WITH ITS RESPECTIVE SUPERIOR ARTICULAR PROCESS. LIDOCAINE WAS USED TO NUMB THE SKIN AND THE SUBCUTANEOUS TISSUE BELOW IT. SPINAL NEEDLE, 22-GAUGE WAS ADVANCED UNDER FLUOROSCOPIC GUIDANCE AND FOLLOWING PATIENT FEEDBACK UNTIL THE TARGETS WERE REACHED. POSITION OF THE NEEDLES WAS VERIFIED WITH AP AND LATERAL VIEWS. AFTER PROPER POSITION OF THE NEEDLES WAS ACHIEVED, ISOVUE-M DYE 30% 0.1 ML WAS INJECTED AT EACH SITE SHOWING ADEQUATE SPREAD OF THE DYE. THEN A SOLUTION OF 0.4 ML OF BUPIVACAINE 0.25% WAS INJECTED AT EACH SITE. THERE WAS NO EVIDENCE OF BLOOD, PARESTHESIA OR CEREBROSPINAL FLUID DURING THE PROCEDURE. THE PATIENT WAS SENT TO THE RECOVERY ROOM. THE PATIENT WAS MOVING THE EXTREMITIES AND DOING WELL. THERE WAS NO COMPLICATION DURING THE PROCEDURE. FLUOROSCOPY TIME WAS 23 SECONDS POST PROCEDURE NOTE THE PATIENT WILL DOCUMENT HIS PAIN LEVEL AND RESPONSE TO THIS PROCEDURE EVERY 30 MINUTES. THE PATIENT WILL BE SEEN IN A FOLLOW UP IN THE NEXT FEW WEEKS. FURTHER DETERMINATION FOR HIS CASE WILL BE DONE AT THE NEXT VISIT. INSTRUCTIONS WERE GIVEN, QUESTIONS WERE ANSWERED, AND THE PATIENT EXPRESSED UNDERSTANDING AND AGREED WITH THE PLAN. I, KIM VILLEGAS, DOCUMENTED THE ABOVE INFORMATION ACTING A SCRIBE FOR DR. PAIZ. I, DR. PAIZ, HAVE REVIEWED THE ABOVE DOCUMENT, SCRIBED BY KIM VILLEGAS, AND I VERIFY THAT IT IS ACCURATE DIAGNOSTIC IMAGING [facility] FACET BLOCK (PAIN)[id number] PROCEDURE CODES 06002 INJ PARAVERT F JNT L/S 1 LEV 30481 INJ PARAVERT F JNT L/S 2 LEV 6045F RADXPS IN END [id number] [id number] DISPOSITION & COMMUNICATION FOLLOW UP 3 WEEKS ELECTRONICALLY SIGNED BY JESIKA PAIZ MD ON 03/09/2017 AT 11:10 PM EDT DISCLAIMER : THIS IS A VISIT SUMMARY EXTRACTED FROM THE [employer] CHART. IT IS NOT A COPY OF THE [employer] PROGRESS NOTE. MTDD
== END ==
LOC: M PAIN 10:20
PROVIDERS: ATTEND Anesthesiology
DX: G89.29 Other chronic pain (principal); M47.816 Spondylosis without myelopathy or radiculopathy, lumbar region; M47.817 Spondylosis without myelopathy or radiculopathy, lumbosacral region; M19.90 Unspecified osteoarthritis, unspecified site; I10 Essential (primary) hypertension; E78.5 Hyperlipidemia, unspecified; Z88.8 Allergy status to other drugs, medicaments and biological substances; Z79.82 Long term (current) use of aspirin; Z79.899 Other long term (current) drug therapy
CPT/HCPCS: 64493; 64494; Q9967

== ENCOUNTER → 2017-02-25 | Outpatient (REF) | payer MEDICARE ==
[~2017-02-25] MED LIST changes: -BUPIVACAINE HCL 0.25% 30 ML VIAL As Ordered ONE; -ISOVUE-M 300 61% 15ML VIAL (Q9967) As Ordered ONE; -LIDOCAINE 1% SDV INJ 30 ML VIAL As Ordered ONE
[2017-02-25 17:24] LABS: PERCENT SATURATION 6.6 % (19.7-37.4)
== END ==
LOC: M LAB REF 16:33
PROVIDERS: ATTEND Internal Medicine Medical Oncology
DX: D45 Polycythemia vera (principal)

== ENCOUNTER → 2017-03-05 | Outpatient (CLI) | payer MEDICARE ==
--- NOTE | 2017-04-07 02:58 | ECWPNPC ---
PATIENT NAME: STEPHAN GARCIA : 1945 GENDER: MALE VISIT DATE: 03/05/2017 DISCHARGE DATE: 03/05/17 0959 VISIT LOCKED DATE TIME: PHYSICIAN: RYAN DELEON RESOURCE: RYAN DELEON REASON FOR APPOINTMENT 1. POST PROCEDURE HISTORY OF PRESENT ILLNESS HISTORY OF PRESENT ILLNESS: HERE FOR POST PROCEDURE F/U.HAD DIAGNOSTIC BLOCK RIGHT L4/5 ON 02-23-17.THIS SHOWING 3POINT REDUCTION IN PAIN X 24 HR THEN PAIN RETURNED TO BASELINE.PAIN LEVEL 4/10 TODAY.PAIN IS LOCATED RIGHT LOW BACK.PAIN AGGREVATED BY NICHOLAS MORAES.RELIEVED AT REST. PAIN THE PATIENT DESCRIBES THE PAIN... FALL RISK SCREENING: SCREENING :NO FALLS IN THE PAST YEAR CURRENT MEDICATIONS TAKING LISINOPRIL 10 MG TABLET 1 TABLET ORALLY ONCE A DAY TAKING MELOXICAM 15 MG TABLET 1 TABLET ORALLY ONCE A DAY TAKING VITAMIN C 500 MG CAPSULE ORALLY DAILY TAKING ASPIRIN ADULT LOW STRENGTH 81 MG TABLET DELAYED RELEASE 1 TABLET ORALLY ONCE A DAY TAKING MULTIVITAMIN TABLET CHEWABLE ORALLY DAILY TAKING SIMVASTATIN 20 MG TABLET 1 TABLET IN THE EVENING ORALLY ONCE A DAY TAKING VITAMIN B12 500 MCG TABLET 1 TABLET ORALLY DAILY TAKING CALCIUM 600 MG TABLET 1 TABLET WITH MEALS ORALLY DAILY TAKING TAMSULOSIN HCL 0.4 MG CAPSULE 1 CAPSULE ORALLY ONCE A DAY NOT-TAKING CYMBALTA 30 MG CAPSULE DELAYED RELEASE PARTICLES 1 CAPSULE ORALLY DAILY NOT-TAKING ALEVE 220 MG TABLET 1 STRIP ORALLY EVERY 12 HRS MEDICATION LIST REVIEWED AND RECONCILED WITH THE PATIENT PAST MEDICAL HISTORY ARTTHRITIS HYPERTENSION HYPERLIPIDEMIA LOW BACK PAIN ENLARGED SPLEEN BILATERAL KIDNEY STONES L ALLERGIES CYMBALTA: HYPER AND JITTERY: SIDE EFFECTS SURGICAL HISTORY TONSILLECTOMY & ADENOIDECTOMY L KNEE ARTHROSCOPY HOSPITALIZATION/MAJOR DIAGNOSTIC PROCEDURE T&A REVIEW OF SYSTEMS REVIEWED BY: PROVIDER: RYAN DELEON OCCUPATIONAL MEDICINE OFFICER . CONSTITUTIONAL: ANY CHANGE IN YOUR MEDICAL CONDITION? NO . CHILLS NO . FEVER NO . INFECTION: DO YOU HAVE NEW INFECTIONS? NO . DO YOU HAVE HISTORY OF MRSA? NO . MUSCULOSKELETAL: ANY NEW PATTERNS OF PAIN OR NUMBNESS? NO . GASTROENTEROLOGY: ANY NEW CHANGE IN BOWEL CONTROL? NO . GENITOURINARY: ANY NEW CHANGE IN BLADDER CONTROL? NO . IS THERE A CHANCE YOU COULD BE ? NO . HEMATOLOGY/LYMPH: DO YOU TAKE ANY BLOOD THINNERS? (FOR EXAMPLE- COUMADIN, PLAVIX, AGGRENOX, PLATEL, PRADAXA, OR XARELTO) NO . WHEN WAS YOUR LAST DOSE? DATE: TIME: . NEUROLOGY: HAVE YOU FALLEN IN THE PAST 6 MONTHS? NO . ANY NEW EXTREMITY NUMBNESS OR WEAKNESS? NO . CARDIOLOGY: DO YOU HAVE A PACEMAKER OR DEFIBRILLATOR? NO . RESPIRATORY: HAVE YOU BEEN SICK IN THE PAST WEEK? NO . FEVER NO . FLU LIKE SYMPTOMS? NO . COUGH NO . INTEGUMENTARY: DO YOU HAVE ANY RASHES OR OPEN SORES? NO . ALLERGIC/IMMUNO: ARE YOU ALLERGIC TO SHELLFISH OR IV DYE? NO . ANY NEW ALLERGIES? NO . PSYCHIATRIC: DO YOU HAVE THOUGHTS OF HURTING YOURSELF OR SOMEONE ELSE? NO . ARE YOU ABUSED, NEGLECTED, OR IN AN UNSAFE ENVIRONMENT? NO . ENDOCRINOLOGY: ARE YOU DIABETIC? NO . OTHER: DO YOU NEED ANY PRESCRIPTIONS? NO . IF YES, PLEASE LIST: ____ . ANY NEW PROBLEMS WITH YOUR MEDICATIONS? NO . WHEN DID YOU LAST EAT? ____ . WHEN DID YOU LAST DRINK? ____ . WHAT DID YOU LAST DRINK? ____ . NAME OF PERSON DRIVING YOU HOME? ____ . DO YOU HAVE ANY OTHER QUESTIONS OR CONCERNS NO . VITAL SIGNS WT 251 LBS, HT 68.5 IN, BMI 37.61 INDEX, BP 132/80 MM HG, HR 72 /MIN, RR 18 /MIN, TEMP 98.2 F, OXYGEN SAT % 96, REVIEWED BY: EM. EXAMINATION GENERAL EXAMINATION: LUNGS:LUNG SOUNDS ARE CLEAR. HEART:HEART RATE REGULAR. MUSCULOSKELETAL:*, MUSCLE STRENGTH TESTING 5/5 BILATERAL, PALPATION: POSITIVE FOR PAIN OVER L/S SPINE. SPECIFIC POINT TENDERNESS NOTED OVER RIGHT L3/4-L4/5 LUMBAR FACET WITH FACET LOADING. MRI L/S [id number]. ASSESSMENTS LUMBAR SPINAL STENOSIS - M48.06 (PRIMARY) LUMBAR SPONDYLOSIS - M47.816 TREATMENT LUMBAR SPINAL STENOSIS NOTES: DIAGNOSTIC LUMBAR FACET #2 L4/5-RIGHT. PROCEDURE CODES FA211 ESTABILISHED PATIENT [facility] FACILITY CHARGE G8730 PAIN ASSESS POS TOOL F/U PLAN DOC G8427 DOC MEDS VERIFIED W/PT OR RE DISPOSITION & COMMUNICATION FOLLOW UP POST PROC (REASON: DIAGNOSTIC LUMBAR FACET #2 L4/5-RIGHT) ELECTRONICALLY SIGNED BY NIRANJAN DAVIES ON 04/06/2017 AT 07:15 PM EDT DISCLAIMER : THIS IS A VISIT SUMMARY EXTRACTED FROM THE [employer] CHART. IT IS NOT A COPY OF THE [employer] PROGRESS NOTE. TONOD
== END ==
LOC: M PAIN 09:20
PROVIDERS: ATTEND Nurse Practitioner Family
DX: G89.29 Other chronic pain (principal); M48.06 Spinal stenosis, lumbar region; M47.816 Spondylosis without myelopathy or radiculopathy, lumbar region; I10 Essential (primary) hypertension; E78.5 Hyperlipidemia, unspecified; M19.90 Unspecified osteoarthritis, unspecified site; Z87.442 Personal history of urinary calculi

== ENCOUNTER → 2017-03-18 | Outpatient (CLI) | payer MEDICARE ==
[~2017-03-18] MED LIST changes: +BUPIVACAINE HCL 0.25% 30 ML VIAL As Ordered ONE; +ISOVUE-M 300 61% 15ML VIAL (Q9967) As Ordered ONE; +LIDOCAINE 1% SDV INJ 30 ML VIAL As Ordered ONE
--- NOTE | 2017-03-18 13:22 | REP ---
Partial lumbar spine series: Single view . History: Injection procedure for pain. 25 seconds of fluoroscopy time is reported. Findings: A single fluoroscopically obtained last image hold procedural spot radiograph of the lumbar spine documents needle position and contrast injection associated with injection procedure. Signed by Dieudonne Fournier MD 03/18/2017 01:10 P
--- NOTE | 2017-03-21 23:42 | ECWPNPC ---
PATIENT NAME: STEPHAN GARCIA : 1945 GENDER: MALE VISIT DATE: 03/18/2017 DISCHARGE DATE: 03/18/17 1252 VISIT LOCKED DATE TIME: PHYSICIAN: JESIKA PAIZ RESOURCE: JESIKA PAIZ REASON FOR APPOINTMENT 1. DIAGNOSTIC LUMBAR FACET #2 RIGHT L4-5 AND RIGHT L5-S1 HISTORY OF PRESENT ILLNESS HISTORY OF PRESENT ILLNESS: PAIN THE PATIENT DESCRIBES THE PAIN... FALL RISK SCREENING: SCREENING :NO FALLS IN THE PAST YEAR CURRENT MEDICATIONS TAKING LISINOPRIL 10 MG TABLET 1 TABLET ORALLY ONCE A DAY, NOTES: 03/18/17699 TAKING MELOXICAM 15 MG TABLET 1 TABLET ORALLY ONCE A DAY, NOTES: 03/18/17699 TAKING VITAMIN C 500 MG CAPSULE ORALLY DAILY, NOTES: 03/18/17699 TAKING ASPIRIN ADULT LOW STRENGTH 81 MG TABLET DELAYED RELEASE 1 TABLET ORALLY ONCE A DAY, NOTES: 03/18/17699 TAKING MULTIVITAMIN TABLET CHEWABLE ORALLY DAILY, NOTES: 03/18/17699 TAKING SIMVASTATIN 20 MG TABLET 1 TABLET IN THE EVENING ORALLY ONCE A DAY, NOTES: 03/17/172029 TAKING VITAMIN B12 500 MCG TABLET 1 TABLET ORALLY DAILY, NOTES: 03/18/17699 TAKING CALCIUM 600 MG TABLET 1 TABLET WITH MEALS ORALLY DAILY, NOTES: 03/18/17699 TAKING TAMSULOSIN HCL 0.4 MG CAPSULE 1 CAPSULE ORALLY ONCE A DAY, NOTES: 03/18/17699 NOT-TAKING CYMBALTA 30 MG CAPSULE DELAYED RELEASE PARTICLES 1 CAPSULE ORALLY DAILY NOT-TAKING ALEVE 220 MG TABLET 1 STRIP ORALLY EVERY 12 HRS MEDICATION LIST REVIEWED AND RECONCILED WITH THE PATIENT PAST MEDICAL HISTORY ARTTHRITIS HYPERTENSION HYPERLIPIDEMIA LOW BACK PAIN ENLARGED SPLEEN BILATERAL KIDNEY STONES L ALLERGIES CYMBALTA: HYPER AND JITTERY: SIDE EFFECTS REVIEW OF SYSTEMS REVIEWED BY: PROVIDER: . CONSTITUTIONAL: ANY CHANGE IN YOUR MEDICAL CONDITION? NO . CHILLS NO . FEVER NO . INFECTION: DO YOU HAVE NEW INFECTIONS? NO . DO YOU HAVE HISTORY OF MRSA? NO . MUSCULOSKELETAL: ANY NEW PATTERNS OF PAIN OR NUMBNESS? NO . GASTROENTEROLOGY: ANY NEW CHANGE IN BOWEL CONTROL? NO . GENITOURINARY: ANY NEW CHANGE IN BLADDER CONTROL? NO . IS THERE A CHANCE YOU COULD BE ? NO . HEMATOLOGY/LYMPH: DO YOU TAKE ANY BLOOD THINNERS? (FOR EXAMPLE- COUMADIN, PLAVIX, AGGRENOX, PLATEL, PRADAXA, OR XARELTO) NO . WHEN WAS YOUR LAST DOSE? DATE: TIME: . NEUROLOGY: HAVE YOU FALLEN IN THE PAST 6 MONTHS? NO . ANY NEW EXTREMITY NUMBNESS OR WEAKNESS? NO . CARDIOLOGY: DO YOU HAVE A PACEMAKER OR DEFIBRILLATOR? NO . RESPIRATORY: HAVE YOU BEEN SICK IN THE PAST WEEK? NO . FEVER NO . FLU LIKE SYMPTOMS? NO . COUGH NO . INTEGUMENTARY: DO YOU HAVE ANY RASHES OR OPEN SORES? NO . ALLERGIC/IMMUNO: ARE YOU ALLERGIC TO SHELLFISH OR IV DYE? NO . ANY NEW ALLERGIES? NO . PSYCHIATRIC: DO YOU HAVE THOUGHTS OF HURTING YOURSELF OR SOMEONE ELSE? NO . ARE YOU ABUSED, NEGLECTED, OR IN AN UNSAFE ENVIRONMENT? NO . ENDOCRINOLOGY: ARE YOU DIABETIC? NO . OTHER: DO YOU NEED ANY PRESCRIPTIONS? NO . IF YES, PLEASE LIST: ____ . ANY NEW PROBLEMS WITH YOUR MEDICATIONS? NO . WHEN DID YOU LAST EAT? 03/17/17 . WHEN DID YOU LAST DRINK? 03/18/17 0700 . WHAT DID YOU LAST DRINK? WATER . NAME OF PERSON DRIVING YOU HOME? , GORDON . DO YOU HAVE ANY OTHER QUESTIONS OR CONCERNS NO . VITAL SIGNS WT 250.2 LBS, HT 68.5 IN, BMI 37.49 INDEX, BP 138/69 MM HG, HR 68 /MIN, RR 16 /MIN, TEMP 97.6 F, OXYGEN SAT % 95%, NA INITIALS SC 10:55, REVIEWED BY: AD. ASSESSMENTS SPONDYLOSIS WITHOUT MYELOPATHY OR RADICULOPATHY, LUMBAR REGION - M47.816 (PRIMARY) SPONDYLOSIS WITHOUT MYELOPATHY OR RADICULOPATHY, LUMBOSACRAL REGION - M47.817 PROCEDURES PN LUMBAR FACET BLOCK DIAGNOSTIC PRE PROCEDURE DIAGNOSIS RIGHT LUMBAR SPONDYLOSIS, AND RIGHT LUMBOSACRAL SPONDYLOSIS POST PROCEDURE DIAGNOSIS RIGHT LUMBAR SPONDYLOSIS, AND RIGHT LUMBOSACRAL SPONDYLOSIS PROCEDURE RIGHT L4-L5 AND RIGHT L5-S1 FACET BLOCK DIAGNOSTIC NUMBER [address] JESIKA PAIZ MANAGER ADOBE NONE ANESTHESIA LOCAL PRE PROCEDURE NOTE THE PATIENT WITH HISTORY OF CHRONIC LOW BACK PAIN. I EVALUATED THE PATIENT AND REVIEWED THE CHART. I WENT OVER THE RISKS, ALTERNATIVES, AND BENEFITS ASSOCIATED WITH THIS PROCEDURE. THE PATIENT WOULD LIKE TO PROCEED AND GAVE CONSENT TO PERFORM THE PROCEDURE. AGREED WITH THE PATIENT WE ARE DOING THIS PROCEDURE TO DETERMINE IF THE PATIENT IS A CANDIDATE FOR A RADIOFREQUENCY ABLATION OF THE FACETS JOINTS. THE PATIENT DENIES UNEXPLAINABLE WEIGHT LOSS, FEVER, CHILLS, OR NEW CHANGES IN URINARY OR BOWEL CONTROL DESCRIPTION OF PROCEDURE THE PATIENT WAS BROUGHT TO THE PROCEDURE ROOM AND PLACED IN THE PRONE POSITION. THE LUMBOSACRAL AREA WAS CLEANED WITH CHLORAPREP SOLUTION AND DRAPED ASEPTICALLY. THE PROCEDURE WAS DONE UNDER STERILE CONDITIONS. I CHECKED LATERALITY AND THE LEVEL WHERE THE PROCEDURE WAS GOING TO BE PERFORMED WITH THE PATIENT AND THE SUPPORTING STAFF AT THE MOMENT OF THE TIME OUT IN THE PROCEDURE ROOM. UNDER FLUOROSCOPIC GUIDANCE, TARGETS WERE SELECTED AT THE INTERSECTION OF THE RIGHT TRANSVERSE PROCESS OF L4, L5 AND ALA OF S1 WITH ITS RESPECTIVE SUPERIOR ARTICULAR PROCESS. LIDOCAINE WAS USED TO NUMB THE SKIN AND THE SUBCUTANEOUS TISSUE BELOW IT. SPINAL NEEDLE, 22-GAUGE WAS ADVANCED UNDER FLUOROSCOPIC GUIDANCE AND FOLLOWING PATIENT FEEDBACK UNTIL THE TARGETS WERE REACHED. POSITION OF THE NEEDLES WAS VERIFIED WITH AP AND LATERAL VIEWS. AFTER PROPER POSITION OF THE NEEDLES WAS ACHIEVED, ISOVUE-M DYE 30% 0.1 ML WAS INJECTED AT EACH SITE SHOWING ADEQUATE SPREAD OF THE DYE. THEN A SOLUTION OF 0.4 ML OF BUPIVACAINE 0.25% WAS INJECTED AT EACH SITE. THERE WAS NO EVIDENCE OF BLOOD, PARESTHESIA OR CEREBROSPINAL FLUID DURING THE PROCEDURE. THE PATIENT WAS SENT TO THE RECOVERY ROOM. THE PATIENT WAS MOVING THE EXTREMITIES AND DOING WELL. THERE WAS NO COMPLICATION DURING THE PROCEDURE. FLUOROSCOPY TIME WAS 25 SECONDS POST PROCEDURE NOTE THE PATIENT WILL DOCUMENT HIS PAIN LEVEL AND RESPONSE TO THIS PROCEDURE EVERY 30 MINUTES. THE PATIENT WILL BE SEEN IN A FOLLOW UP IN THE NEXT FEW WEEKS. FURTHER DETERMINATION FOR HIS CASE WILL BE DONE AT THE NEXT VISIT. INSTRUCTIONS WERE GIVEN, QUESTIONS WERE ANSWERED, AND THE PATIENT EXPRESSED UNDERSTANDING AND AGREED WITH THE PLAN. I MALINA RODRIGUEZ DOCUMENTED THE ABOVE INFORMATION ACTING A CHIEF INVESTMENT OFFICER FOR DR. PAIZ. I HAVE REVIEWED THE ABOVE DOCUMENT WRITTEN BY MALINA RODRIGUEZ [employer] AND I VERIFY THAT IT IS ACCURATE. DIAGNOSTIC [facility] FACET BLOCK (PAIN)[id number] PROCEDURE CODES 6045F RADXPS IN END [id number] PXD 93462 INJ PARAVERT F JNT L/S 1 LEV 44908 INJ PARAVERT F JNT L/S 2 LEV DISPOSITION & COMMUNICATION FOLLOW UP 3 WEEKS ELECTRONICALLY SIGNED BY JESIKA PAIZ MD ON 03/21/2017 AT 07:22 PM EDT DISCLAIMER : THIS IS A VISIT SUMMARY EXTRACTED FROM THE [employer] CHART. IT IS NOT A COPY OF THE [employer] PROGRESS NOTE. JANUARY
== END ==
LOC: M PAIN 11:00
PROVIDERS: ATTEND Anesthesiology
DX: G89.29 Other chronic pain (principal); M47.816 Spondylosis without myelopathy or radiculopathy, lumbar region; M47.817 Spondylosis without myelopathy or radiculopathy, lumbosacral region; M19.90 Unspecified osteoarthritis, unspecified site; I10 Essential (primary) hypertension; E78.5 Hyperlipidemia, unspecified; Z88.8 Allergy status to other drugs, medicaments and biological substances; Z79.82 Long term (current) use of aspirin; Z79.899 Other long term (current) drug therapy
CPT/HCPCS: 64493; 64494; Q9967

== ENCOUNTER → 2017-03-30 | Outpatient (CLI) | payer MEDICARE ==
[~2017-03-30] MED LIST changes: -BUPIVACAINE HCL 0.25% 30 ML VIAL As Ordered ONE; +CONRAY-43 43% 50ML VIAL (Q9960) As Ordered ONE; -ISOVUE-M 300 61% 15ML VIAL (Q9967) As Ordered ONE; +LIDOCAINE 1% MDV 20ML VIAL As Ordered ONE; -LIDOCAINE 1% SDV INJ 30 ML VIAL As Ordered ONE; +methylPREDNISolone SUSP 40 MG/ML (DEPO-medrol) VIAL (J1030) As Ordered ONE
--- NOTE | 2017-03-30 13:29 | REP ---
RIGHT HIP ARTHROGRAM: The procedure was performed by YONNY Gottlieb, under the direct supervision of Dr. Fournier. The risks, benefits and complications of the this procedure were discussed with the patient prior to the procedure. Informed consent was obtained both verbally and written. The right femoral neck was localized using fluoroscopic guidance. The skin was marked, prepped and draped in usual sterile fashion. A procedural "time out" was performed to ensure the correct patient, site and procedure were being performed. 1% lidocaine was used for local anesthetic. Under fluoroscopic guidance, a 22-gauge spinal needle was inserted and advanced to the femoral neck. 0.5 mL of Conray 60 was injected to verify placement. A 7 mL solution containing 5 mL of 1% lidocaine and 2 mL of Depo-Medrol 40 were injected into the joint space. The needle was then removed. The patient tolerated the procedure well and had no immediate complications. Fluoroscopy time was 9 seconds. Reviewed by YONNY Carlisle 03/30/2017 01:34 PEdited and Signed by Dieudonne Fournier MD 03/30/2017 05:22 P
== END ==
LOC: M RADPRO 10:13
PROVIDERS: ATTEND Orthopaedic Surgery
DX: M25.551 Pain in right hip (principal); M16.11 Unilateral primary osteoarthritis, right hip; Z91.048 Other nonmedicinal substance allergy status
CPT/HCPCS: 20610; 77002; J1030; Q9960

== ENCOUNTER → 2017-04-01 | Outpatient (REF) | payer MEDICARE ==
[~2017-04-01] MED LIST changes: -CONRAY-43 43% 50ML VIAL (Q9960) As Ordered ONE; -LIDOCAINE 1% MDV 20ML VIAL As Ordered ONE; -methylPREDNISolone SUSP 40 MG/ML (DEPO-medrol) VIAL (J1030) As Ordered ONE
[2017-04-01 22:02] LABS: PERCENT SATURATION 4.4 % (19.7-50.0)
== END ==
LOC: M LAB REF 13:30
PROVIDERS: ATTEND Internal Medicine Medical Oncology
DX: D45 Polycythemia vera (principal)

== ENCOUNTER → 2017-04-16 | Outpatient (CLI) | payer MEDICARE ==
--- NOTE | 2017-05-03 00:39 | ECWPNPC ---
PATIENT NAME: STEPHAN GARCIA : 1945 GENDER: MALE VISIT DATE: 04/16/2017 DISCHARGE DATE: 04/16/17 1439 VISIT LOCKED DATE TIME: PHYSICIAN: RYAN DELEON RESOURCE: RYAN DELEON REASON FOR APPOINTMENT 1. POST FACET HISTORY OF PRESENT ILLNESS HISTORY OF PRESENT ILLNESS: HERE FOR POST PROCEDURE F/U.HAD DIAGNOSTIC BLOCK #2 RIGHT L4/5 ON 03-18-17.THIS SHOWED 50% REDUCTION IN PAIN X 7-10 DAYS THEN PAIN RETURNED TO BASELINE.PAIN LEVEL 7/10 TODAY.PAIN IS LOCATED RIGHT LOW BACK.PAIN AGGREVATED BY NICHOLAS MORAES.RELIEVED AT REST. DISCUSSED TREATMENT OPTIONS INCLUDING RADIOFREQUENCY. PAIN THE PATIENT DESCRIBES THE PAIN... THE PATIENT DESCRIBES THE PAIN... FALL RISK SCREENING: SCREENING :NO FALLS IN THE PAST YEAR CURRENT MEDICATIONS TAKING LISINOPRIL 10 MG TABLET 1 TABLET ORALLY ONCE A DAY TAKING MELOXICAM 15 MG TABLET 1 TABLET ORALLY ONCE A DAY TAKING VITAMIN C 500 MG CAPSULE ORALLY DAILY TAKING ASPIRIN ADULT LOW STRENGTH 81 MG TABLET DELAYED RELEASE 1 TABLET ORALLY ONCE A DAY TAKING MULTIVITAMIN TABLET CHEWABLE ORALLY DAILY TAKING SIMVASTATIN 20 MG TABLET 1 TABLET IN THE EVENING ORALLY ONCE A DAY TAKING VITAMIN B12 500 MCG TABLET 1 TABLET ORALLY DAILY TAKING CALCIUM 600 MG TABLET 1 TABLET WITH MEALS ORALLY DAILY TAKING TAMSULOSIN HCL 0.4 MG CAPSULE 1 CAPSULE ORALLY ONCE A DAY NOT-TAKING CYMBALTA 30 MG CAPSULE DELAYED RELEASE PARTICLES 1 CAPSULE ORALLY DAILY NOT-TAKING ALEVE 220 MG TABLET 1 STRIP ORALLY EVERY 12 HRS MEDICATION LIST REVIEWED AND RECONCILED WITH THE PATIENT PAST MEDICAL HISTORY ARTTHRITIS HYPERTENSION HYPERLIPIDEMIA LOW BACK PAIN ENLARGED SPLEEN BILATERAL KIDNEY STONES L ALLERGIES CYMBALTA: HYPER AND JITTERY: SIDE EFFECTS SURGICAL HISTORY TONSILLECTOMY & ADENOIDECTOMY L KNEE ARTHROSCOPY HOSPITALIZATION/MAJOR DIAGNOSTIC PROCEDURE T&A REVIEW OF SYSTEMS REVIEWED BY: PROVIDER: RYAN DELEON SCHEDULER MAINTENANCE . CONSTITUTIONAL: ANY CHANGE IN YOUR MEDICAL CONDITION? NO . CHILLS NO . FEVER NO . INFECTION: DO YOU HAVE NEW INFECTIONS? NO . DO YOU HAVE HISTORY OF MRSA? NO . MUSCULOSKELETAL: ANY NEW PATTERNS OF PAIN OR NUMBNESS? NO . GASTROENTEROLOGY: ANY NEW CHANGE IN BOWEL CONTROL? NO . GENITOURINARY: ANY NEW CHANGE IN BLADDER CONTROL? NO . IS THERE A CHANCE YOU COULD BE ? NO . HEMATOLOGY/LYMPH: DO YOU TAKE ANY BLOOD THINNERS? (FOR EXAMPLE- COUMADIN, PLAVIX, AGGRENOX, PLATEL, PRADAXA, OR XARELTO) NO . WHEN WAS YOUR LAST DOSE? DATE: TIME: . NEUROLOGY: HAVE YOU FALLEN IN THE PAST 6 MONTHS? NO . ANY NEW EXTREMITY NUMBNESS OR WEAKNESS? NO . CARDIOLOGY: DO YOU HAVE A PACEMAKER OR DEFIBRILLATOR? NO . RESPIRATORY: HAVE YOU BEEN SICK IN THE PAST WEEK? NO . FEVER NO . FLU LIKE SYMPTOMS? NO . COUGH NO . INTEGUMENTARY: DO YOU HAVE ANY RASHES OR OPEN SORES? NO . ALLERGIC/IMMUNO: ARE YOU ALLERGIC TO SHELLFISH OR IV DYE? NO . ANY NEW ALLERGIES? NO . PSYCHIATRIC: DO YOU HAVE THOUGHTS OF HURTING YOURSELF OR SOMEONE ELSE? NO . ARE YOU ABUSED, NEGLECTED, OR IN AN UNSAFE ENVIRONMENT? NO . ENDOCRINOLOGY: ARE YOU DIABETIC? NO . OTHER: DO YOU NEED ANY PRESCRIPTIONS? NO . IF YES, PLEASE LIST: ____ . ANY NEW PROBLEMS WITH YOUR MEDICATIONS? NO . WHEN DID YOU LAST EAT? ____ . WHEN DID YOU LAST DRINK? ____ . WHAT DID YOU LAST DRINK? ____ . NAME OF PERSON DRIVING YOU HOME? ____ . DO YOU HAVE ANY OTHER QUESTIONS OR CONCERNS NO . VITAL SIGNS WT 251 LBS, HT 68.5 IN, BMI 37.61 INDEX, BP 127/68 MM HG, HR 87 /MIN, RR 16 /MIN, TEMP 99.1 F, OXYGEN SAT % 94, REVIEWED BY: EM. EXAMINATION GENERAL EXAMINATION: LUNGS:LUNG SOUNDS ARE CLEAR. HEART:HEART RATE REGULAR. MUSCULOSKELETAL:*, MUSCLE STRENGTH TESTING 5/5 BILATERAL, PALPATION: POSITIVE FOR PAIN OVER L/S SPINE. SPECIFIC POINT TENDERNESS NOTED OVER RIGHT L3/4-L4/5 LUMBAR FACET WITH FACET LOADING. MRI L/S [id number]. 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 PROCEDURE CODES FA211 ESTABILISHED PATIENT [facility] FACILITY CHARGE H8467 PAIN ASSESS POS TOOL F/U PLAN DOC G8427 DOC MEDS VERIFIED W/PT OR RE DISPOSITION & COMMUNICATION FOLLOW UP 2WK POST (REASON: RIGHT L4/5-L5/S1 RADIOFREQUENCY) ELECTRONICALLY SIGNED BY NIRANJAN DAVIES ON 05/02/2017 AT 08:56 PM EDT DISCLAIMER : THIS IS A VISIT SUMMARY EXTRACTED FROM THE [employer] CHART. IT IS NOT A COPY OF THE [employer] PROGRESS NOTE. JANUARY
== END ==
LOC: M PAIN 13:45
PROVIDERS: ATTEND Nurse Practitioner Family
DX: G89.29 Other chronic pain (principal); M48.06 Spinal stenosis, lumbar region; M47.816 Spondylosis without myelopathy or radiculopathy, lumbar region; M19.90 Unspecified osteoarthritis, unspecified site; I10 Essential (primary) hypertension; E78.5 Hyperlipidemia, unspecified; Z88.8 Allergy status to other drugs, medicaments and biological substances; Z79.82 Long term (current) use of aspirin; Z79.899 Other long term (current) drug therapy

== ENCOUNTER → 2017-04-29 | Outpatient (REF) | payer MEDICARE ==
[2017-04-29 19:30] LABS: PERCENT SATURATION 4.7 % (19.7-50.0)
== END ==
LOC: M LAB REF 18:46
PROVIDERS: ATTEND Internal Medicine Medical Oncology
DX: D45 Polycythemia vera (principal)

== ENCOUNTER → 2017-05-05 | Outpatient (CLI) | payer MEDICARE ==
[~2017-05-05] MED LIST changes: +BUPIVACAINE HCL 0.25% 30 ML VIAL As Ordered ONE; +ISOVUE-M 300 61% 15ML VIAL (Q9967) As Ordered ONE; +LIDOCAINE 1% SDV INJ 30 ML VIAL As Ordered ONE; +TRIAMCINOLONE ACETONIDE SUSP 40 MG/ML VIAL (J3301) As Ordered ONE
--- NOTE | 2017-05-05 15:53 | REP ---
Partial lumbar spine series: Three views . History: Injection procedure for pain. 53 seconds of fluoroscopy time is reported. Findings: A sequence of three fluoroscopically obtained last image hold procedural spot radiographs of the lumbar spine document needle position and contrast injection associated with injection procedure. Signed by Dieudonne Fournier MD 05/05/2017 03:43 P
--- NOTE | 2017-05-14 00:50 | ECWPNPC ---
PATIENT NAME: STEPHAN GARCIA : 1945 GENDER: MALE VISIT DATE: 05/05/2017 DISCHARGE DATE: 05/05/17 1603 VISIT LOCKED DATE TIME: PHYSICIAN: JESIKA PAIZ RESOURCE: JESIKA PAIZ REASON FOR APPOINTMENT 1. RIGHT L4/5-L5/S1 RADIOFREQUENCY HISTORY OF PRESENT ILLNESS HISTORY OF PRESENT ILLNESS: PAIN THE PATIENT DESCRIBES THE PAIN... FALL RISK SCREENING: SCREENING :NO FALLS IN THE PAST YEAR CURRENT MEDICATIONS TAKING LISINOPRIL 10 MG TABLET 1 TABLET ORALLY ONCE A DAY, NOTES: 05-05-17629 TAKING MELOXICAM 15 MG TABLET 1 TABLET ORALLY ONCE A DAY, NOTES: 05-04-17 0800 TAKING VITAMIN C 500 MG CAPSULE ORALLY DAILY, NOTES: 05-05-17629 TAKING ASPIRIN ADULT LOW STRENGTH 81 MG TABLET DELAYED RELEASE 1 TABLET ORALLY ONCE A DAY, NOTES: 05-05-17629 TAKING MULTIVITAMIN TABLET CHEWABLE ORALLY DAILY, NOTES: 05-05-17629 TAKING SIMVASTATIN 20 MG TABLET 1 TABLET IN THE EVENING ORALLY ONCE A DAY, NOTES: 05-04-17 2100 TAKING VITAMIN B12 500 MCG TABLET 1 TABLET ORALLY DAILY, NOTES: 05-05-17629 TAKING CALCIUM 600 MG TABLET 1 TABLET WITH MEALS ORALLY DAILY, NOTES: 05-05-17629 TAKING TAMSULOSIN HCL 0.4 MG CAPSULE 1 CAPSULE ORALLY ONCE A DAY, NOTES: 05-05-17629 UNKNOWN CYMBALTA 30 MG CAPSULE DELAYED RELEASE PARTICLES 1 CAPSULE ORALLY DAILY UNKNOWN ALEVE 220 MG TABLET 1 STRIP ORALLY EVERY 12 HRS MEDICATION LIST REVIEWED AND RECONCILED WITH THE PATIENT PAST MEDICAL HISTORY ARTTHRITIS HYPERTENSION HYPERLIPIDEMIA LOW BACK PAIN ENLARGED SPLEEN L BILATERAL KIDNEY STONES ALLERGIES CYMBALTA: HYPER AND JITTERY: SIDE EFFECTS SURGICAL HISTORY TONSILLECTOMY & ADENOIDECTOMY L KNEE ARTHROSCOPY HOSPITALIZATION/MAJOR DIAGNOSTIC PROCEDURE T&A REVIEW OF SYSTEMS REVIEWED BY: PROVIDER: . CONSTITUTIONAL: ANY CHANGE IN YOUR MEDICAL CONDITION? NO . CHILLS NO . FEVER NO . INFECTION: DO YOU HAVE NEW INFECTIONS? NO . DO YOU HAVE HISTORY OF MRSA? NO . MUSCULOSKELETAL: ANY NEW PATTERNS OF PAIN OR NUMBNESS? NO . GASTROENTEROLOGY: ANY NEW CHANGE IN BOWEL CONTROL? NO . GENITOURINARY: ANY NEW CHANGE IN BLADDER CONTROL? NO . IS THERE A CHANCE YOU COULD BE ? NO . HEMATOLOGY/LYMPH: DO YOU TAKE ANY BLOOD THINNERS? (FOR EXAMPLE- COUMADIN, PLAVIX, AGGRENOX, PLATEL, PRADAXA, OR XARELTO) NO . WHEN WAS YOUR LAST DOSE? DATE: TIME: . NEUROLOGY: HAVE YOU FALLEN IN THE PAST 6 MONTHS? NO . ANY NEW EXTREMITY NUMBNESS OR WEAKNESS? NO . CARDIOLOGY: DO YOU HAVE A PACEMAKER OR DEFIBRILLATOR? NO . RESPIRATORY: HAVE YOU BEEN SICK IN THE PAST WEEK? NO . FEVER NO . FLU LIKE SYMPTOMS? NO . COUGH NO . INTEGUMENTARY: DO YOU HAVE ANY RASHES OR OPEN SORES? NO . ALLERGIC/IMMUNO: ARE YOU ALLERGIC TO SHELLFISH OR IV DYE? NO . ANY NEW ALLERGIES? NO . PSYCHIATRIC: DO YOU HAVE THOUGHTS OF HURTING YOURSELF OR SOMEONE ELSE? NO . ARE YOU ABUSED, NEGLECTED, OR IN AN UNSAFE ENVIRONMENT? NO . ENDOCRINOLOGY: ARE YOU DIABETIC? NO . OTHER: DO YOU NEED ANY PRESCRIPTIONS? NO . IF YES, PLEASE LIST: ____ . ANY NEW PROBLEMS WITH YOUR MEDICATIONS? NO . WHEN DID YOU LAST EAT? ____LAST NIGHT 6 PM . WHEN DID YOU LAST DRINK? ____THIS MORNING 0630 . WHAT DID YOU LAST DRINK? ____WATER . NAME OF PERSON DRIVING YOU HOME? ____AMY - . DO YOU HAVE ANY OTHER QUESTIONS OR CONCERNS NO . VITAL SIGNS WT 250 LBS, HT 68.5 IN, BMI 37.46 INDEX, BP 130/70 MM HG, HR 67 /MIN, RR 18 /MIN, TEMP 98.2 F, OXYGEN SAT % 94, SAFE IN ENV? (Y/N) YES, REVIEWED BY: KG. ASSESSMENTS SPONDYLOSIS OF LUMBAR REGION WITHOUT MYELOPATHY OR RADICULOPATHY - M47.816 (PRIMARY) SPONDYLOSIS OF LUMBOSACRAL REGION WITHOUT MYELOPATHY OR RADICULOPATHY - M47.817 PROCEDURES PN RADIOFREQUENCY PRE PROCEDURE DIAGNOSES 1. LUMBAR SPONDYLOSIS. 2. LUMBOSACRAL SPONDYLOSIS POST PROCEDURE DIAGNOSES 1. LUMBAR SPONDYLOSIS. 2. LUMBOSACRAL SPONDYLOSIS PROCEDURE RIGHT L4-L5 AND RIGHT L5-S1 LUMBAR FACET RADIOFREQUENCY SURGEON DR. JESIKA PAIZ IDEA MAN NONE ANESTHESIA LOCAL PRE PROCEDURE REPORT THE PATIENT HAS HISTORY OF CHRONIC LOW BACK PAIN. I EVALUATE THE PATIENT AND REVIEWED THE CHART. I WENT OVER THE RISKS, ALTERNATIVES, AND BENEFITS ASSOCIATED WITH THIS PROCEDURE. THE PATIENT WOULD LIKE TO PROCEED AND GIVE CONSENT TO PERFORMED THE PROCEDURE. THE PATIENT DENIES UNEXPLAINABLE WEIGHT LOSS, FEVER, CHILLS, OR NEW CHANGES IN URINARY OR BOWEL CONTROL DESCRIPTION OF PROCEDURE THE PATIENT WAS BROUGHT TO THE PROCEDURE ROOM AND PLACED IN THE PRONE POSITION. THE LUMBOSACRAL AREA WAS CLEANED WITH CHLORAPREP SOLUTION AND DRAPED ASEPTICALLY. THE PROCEDURE WAS DONE UNDER STERILE CONDITIONS. I CHECKED LATERALITY AND THE LEVEL WHERE THE PROCEDURE WAS GOING TO BE PERFORMED WITH THE PATIENT AND THE SUPPORTING STAFF AT THE MOMENT OF THE TIME OUT IN THE PROCEDURE ROOM. UNDER FLUOROSCOPIC GUIDANCE, TARGETS WERE SELECTED AT THE INTERSECTION OF THE RIGHT TRANSVERSE PROCESS OF L4, L5 AND ALA OF S1 WITH ITS RESPECTIVE SUPERIOR ARTICULAR PROCESS. LIDOCAINE WAS USED TO NUMB THE SKIN AND THE SUBCUTANEOUS TISSUE BELOW IT. RADIOFREQUENCY NEEDLES 22-GAUGE 15 CM LONG WITH 10 MM ACTIVE CURVE TIP WERE ADVANCED UNDER FLUOROSCOPIC GUIDANCE AND FOLLOWING PATIENT FEEDBACK UNTIL THE TARGET AREA WAS REACHED. POSITION OF THE NEEDLES WAS VERIFIED WITH AP AND LATERAL VIEWS. AFTER PROPER POSITION OF THE NEEDLE WAS ACHIEVED, WE WORKED WITH THE RIGHT SELECTED MEDIAN BRANCHES OF L3, L4 AND THE DORSAL RAMI OF L5. WE MEASURED THE CORRESPONDING IMPEDANCES, SENSORY STIMULATION AND MOTOR RESPONSES INDICATED IN THE RADIOFREQUENCY WORKSHEET. POSITION OF THE NEEDLES WAS VERIFIED AGAIN WITH AP AND LATERAL VIEWS. LIDOCAINE 1%, 2 ML, WAS INJECTED AT EACH LEVEL. RADIOFREQUENCY WAS DONE AT EACH LEVEL AT 80 DEGREES FOR 90 SECONDS. AFTER RADIOFREQUENCY WAS DONE, THE PATIENT RECEIVED BUPIVACAINE 0.125% 1 CC WITH KENALOG 5 MG AT EACH SITE. THERE WAS NO EVIDENCE OF BLOOD, PARESTHESIA OR CEREBROSPINAL FLUID DURING THE PROCEDURE. THE PATIENT WAS SENT TO THE RECOVERY ROOM. THE PATIENT WAS MOVING THE EXTREMITIES AND DOING WELL. THERE WAS NO COMPLICATION DURING THE PROCEDURE. FLUOROSCOPY TIME WAS 54 SECONDS POST PROCEDURE NOTE THE PATIENT WILL BE SEEN IN A FOLLOW UP IN THE NEXT FEW WEEKS. INSTRUCTIONS WERE GIVEN, QUESTIONS WERE ANSWERED, AND THE PATIENT EXPRESSED UNDERSTANDING AND AGREES WITH THE PLAN. I, KIM VILLEGAS, DOCUMENTED THE ABOVE INFORMATION ACTING A SCRIBE FOR DR. PAIZ. I, DR. PAIZ, HAVE REVIEWED THE ABOVE DOCUMENT, SCRIBED BY KIM VILLEGAS, AND I VERIFY THAT IT IS ACCURATE DIAGNOSTIC IMAGING [facility] FACET BLOCK (PAIN)[id number] PROCEDURE CODES 27611 DESTROY LUMB/SAC FACET JNT, MODIFI[place]: [place] 122[address] DESTROY L/S FACET JNT ADDL, MODIFIERS: RT 6045F RADXPS IN END [id number] PXD DISPOSITION & COMMUNICATION FOLLOW UP 3 WEEKS ELECTRONICALLY SIGNED BY JESIKA PAIZ MD ON 05/13/2017 AT 12:53 PM EDT DISCLAIMER : THIS IS A VISIT SUMMARY EXTRACTED FROM THE [employer] CHART. IT IS NOT A COPY OF THE [employer] PROGRESS NOTE. MTDD
== END ==
LOC: M PAIN 13:15
PROVIDERS: ATTEND Anesthesiology
DX: M47.816 Spondylosis without myelopathy or radiculopathy, lumbar region (principal); M47.817 Spondylosis without myelopathy or radiculopathy, lumbosacral region; I10 Essential (primary) hypertension; Z79.82 Long term (current) use of aspirin; Z79.899 Other long term (current) drug therapy; Z88.8 Allergy status to other drugs, medicaments and biological substances
CPT/HCPCS: 64635; 64636; J3301; Q9967

== ENCOUNTER → 2017-07-20 | Outpatient (CLI) | payer MEDICARE | LOC: M PAIN 14:15 | DX: G89.29 Other chronic pain (principal); M48.061 Spinal stenosis, lumbar region without neurogenic claudication; M47.816 Spondylosis without myelopathy or radiculopathy, lumbar region; M19.90 Unspecified osteoarthritis, unspecified site; I10 Essential (primary) hypertension; E78.5 Hyperlipidemia, unspecified; Z79.82 Long term (current) use of aspirin; Z79.899 Other long term (current) drug therapy; Z87.891 Personal history of nicotine dependence | CPT/HCPCS: G0463 ==

== ENCOUNTER → 2017-09-27 | Outpatient (CLI) | payer MEDICARE ==
[~2017-09-27] MED LIST changes: -ALEV220T26 PO; -ASPI1TAB PO; -BUPIVACAINE HCL 0.25% 30 ML VIAL As Ordered ONE; -CALC600T60 PO; +CONRAY-43 43% 50ML VIAL (Q9960) As Ordered; -DEPA250T32 PO; -ISOVUE-M 300 61% 15ML VIAL (Q9967) As Ordered ONE; +LIDOCAINE 1% MDV 20ML VIAL As Ordered; -LIDOCAINE 1% SDV INJ 30 ML VIAL As Ordered ONE; -LISI10TA4 PO; -MULTCAP PO; -SIMV20TA2 PO; -TRIAMCINOLONE ACETONIDE SUSP 40 MG/ML VIAL (J3301) As Ordered ONE; -TYLE325T5 PO; -VITA500T PO; -VITA500T53 PO; -alleve PO; +methylPREDNISolone SUSP 40 MG/ML (DEPO-medrol) VIAL (J1030) As Ordered
== END ==
LOC: M RADPRO 13:05
DX: M16.11 Unilateral primary osteoarthritis, right hip (principal); M25.551 Pain in right hip
CPT/HCPCS: 20610

== ENCOUNTER → 2017-10-06 | Outpatient (CLI) | payer MEDICARE | LOC: M PAIN 11:30 | DX: M48.061 Spinal stenosis, lumbar region without neurogenic claudication (principal); M47.816 Spondylosis without myelopathy or radiculopathy, lumbar region; I10 Essential (primary) hypertension; E78.5 Hyperlipidemia, unspecified; Z79.82 Long term (current) use of aspirin; Z79.899 Other long term (current) drug therapy; Z88.8 Allergy status to other drugs, medicaments and biological substances; Z87.891 Personal history of nicotine dependence | CPT/HCPCS: G0463 ==

== ENCOUNTER → 2017-11-25 | Outpatient (REF) | payer MEDICARE ==
[2017-11-25 18:42] LABS: FERRITIN 8 NG/ML (26-388); IRON (FE) 29 UG/DL (65-175); PERCENT SATURATION 7.3 % (19.7-50.0); TOTAL IRON BINDING CAPACITY 398 UG/DL (250-450)
== END ==
LOC: M LAB REF 17:44
DX: D45 Polycythemia vera (principal)
CPT/HCPCS: 83550

== ENCOUNTER → 2017-12-06 | Outpatient (CLI) | payer MEDICARE | LOC: M PAIN 10:45 | DX: M48.061 Spinal stenosis, lumbar region without neurogenic claudication (principal); M47.816 Spondylosis without myelopathy or radiculopathy, lumbar region; G89.29 Other chronic pain; I10 Essential (primary) hypertension; E78.5 Hyperlipidemia, unspecified; M19.90 Unspecified osteoarthritis, unspecified site; Z79.82 Long term (current) use of aspirin; Z79.899 Other long term (current) drug therapy; Z88.8 Allergy status to other drugs, medicaments and biological substances; Z87.891 Personal history of nicotine dependence | CPT/HCPCS: G0463 ==

== ENCOUNTER → 2018-01-14 | Outpatient (CLI) | payer OTHER, MEDICARE | LOC: M PAIN 13:30 | DX: M54.5 Low back pain (principal); G89.29 Other chronic pain; M19.90 Unspecified osteoarthritis, unspecified site; I10 Essential (primary) hypertension; E78.5 Hyperlipidemia, unspecified; Z79.82 Long term (current) use of aspirin; Z79.899 Other long term (current) drug therapy; Z88.8 Allergy status to other drugs, medicaments and biological substances; Z87.891 Personal history of nicotine dependence | CPT/HCPCS: G0463 ==

== ENCOUNTER → 2018-01-17 | Outpatient (REF) | payer OTHER, MEDICARE ==
[2018-01-17 14:57] LABS: FERRITIN 18 NG/ML (26-388); IRON (FE) 56 UG/DL (65-175); PERCENT SATURATION 14.5 % (19.7-50.0); TOTAL IRON BINDING CAPACITY 386 UG/DL (250-450)
== END ==
LOC: M LAB REF 13:09
DX: D45 Polycythemia vera (principal)

== ENCOUNTER → 2018-01-25 | Outpatient (CLI) | payer MEDICARE | LOC: M RADPRO 09:55 | DX: M16.11 Unilateral primary osteoarthritis, right hip (principal); M25.551 Pain in right hip; Z79.82 Long term (current) use of aspirin; Z79.899 Other long term (current) drug therapy | CPT/HCPCS: 20610 ==

== ENCOUNTER → 2018-01-25 | Outpatient (CLI) | payer OTHER, MEDICARE | LOC: M PAIN 13:30 | DX: M48.061 Spinal stenosis, lumbar region without neurogenic claudication (principal); M47.816 Spondylosis without myelopathy or radiculopathy, lumbar region; M19.90 Unspecified osteoarthritis, unspecified site; I10 Essential (primary) hypertension; E78.5 Hyperlipidemia, unspecified; Z79.82 Long term (current) use of aspirin; Z79.899 Other long term (current) drug therapy; Z88.8 Allergy status to other drugs, medicaments and biological substances; Z87.891 Personal history of nicotine dependence | CPT/HCPCS: G0463 ==

== ENCOUNTER → 2018-03-08 | Outpatient (CLI) | payer OTHER, MEDICARE | LOC: M PAIN 13:45 | DX: M48.061 Spinal stenosis, lumbar region without neurogenic claudication (principal); M47.816 Spondylosis without myelopathy or radiculopathy, lumbar region; I10 Essential (primary) hypertension; M19.90 Unspecified osteoarthritis, unspecified site; R16.1 Splenomegaly, not elsewhere classified; E78.5 Hyperlipidemia, unspecified; Z79.82 Long term (current) use of aspirin; Z87.891 Personal history of nicotine dependence; Z87.442 Personal history of urinary calculi; Z79.1 Long term (current) use of non-steroidal anti-inflammatories (NSAID); Z79.899 Other long term (current) drug therapy; Z88.8 Allergy status to other drugs, medicaments and biological substances | CPT/HCPCS: G0463 ==

== ENCOUNTER → 2018-03-22 | Outpatient (REF) | payer MEDICARE ==
[2018-03-22 20:57] LABS: FERRITIN 10 NG/ML (26-388); IRON (FE) 48 UG/DL (65-175); PERCENT SATURATION 12.5 % (19.7-50.0); TOTAL IRON BINDING CAPACITY 385 UG/DL (250-450)
== END ==
LOC: M LAB REF 20:27
DX: D45 Polycythemia vera (principal)
CPT/HCPCS: 83550

== ENCOUNTER → 2018-04-14 | Outpatient (CLI) | payer OTHER, MEDICARE ==
[~2018-04-14] MED LIST changes: +BUPIVACAINE HCL 0.25% 30 ML VIAL As Ordered; -CONRAY-43 43% 50ML VIAL (Q9960) As Ordered; +ISOVUE-M 300 61% 15ML VIAL (Q9967) As Ordered; -LIDOCAINE 1% MDV 20ML VIAL As Ordered; +LIDOCAINE 1% SDV INJ 30 ML VIAL As Ordered; +TRIAMCINOLONE ACETONIDE SUSP 40 MG/ML VIAL (J3301) As Ordered; -methylPREDNISolone SUSP 40 MG/ML (DEPO-medrol) VIAL (J1030) As Ordered
== END ==
LOC: M PAIN 08:45
DX: G89.29 Other chronic pain (principal); M47.816 Spondylosis without myelopathy or radiculopathy, lumbar region; M47.817 Spondylosis without myelopathy or radiculopathy, lumbosacral region; I10 Essential (primary) hypertension; E78.5 Hyperlipidemia, unspecified; M19.90 Unspecified osteoarthritis, unspecified site; Z79.82 Long term (current) use of aspirin; Z79.1 Long term (current) use of non-steroidal anti-inflammatories (NSAID); Z79.899 Other long term (current) drug therapy; Z88.8 Allergy status to other drugs, medicaments and biological substances; Z87.891 Personal history of nicotine dependence
CPT/HCPCS: J3301

== ENCOUNTER → 2018-05-05 | Outpatient (CLI) | payer OTHER, MEDICARE | LOC: M PAIN 09:15 | DX: M79.10 Myalgia, unspecified site (principal); M48.061 Spinal stenosis, lumbar region without neurogenic claudication; M47.816 Spondylosis without myelopathy or radiculopathy, lumbar region; I10 Essential (primary) hypertension; E78.5 Hyperlipidemia, unspecified; Z79.82 Long term (current) use of aspirin; Z79.899 Other long term (current) drug therapy; Z88.8 Allergy status to other drugs, medicaments and biological substances | CPT/HCPCS: G0463 ==

== ENCOUNTER → 2018-05-24 | Outpatient (CLI) | payer OTHER, MEDICARE ==
[~2018-05-24] MED LIST changes: -ISOVUE-M 300 61% 15ML VIAL (Q9967) As Ordered; -LIDOCAINE 1% SDV INJ 30 ML VIAL As Ordered
== END ==
LOC: M PAIN 14:00
DX: M79.18 Myalgia, other site (principal); M54.6 Pain in thoracic spine; M54.5 Low back pain; I10 Essential (primary) hypertension; E78.5 Hyperlipidemia, unspecified; M19.90 Unspecified osteoarthritis, unspecified site; Z79.82 Long term (current) use of aspirin; Z79.899 Other long term (current) drug therapy; Z88.8 Allergy status to other drugs, medicaments and biological substances; Z87.891 Personal history of nicotine dependence
CPT/HCPCS: J3301

== ENCOUNTER → 2018-06-03 | Outpatient (CLI) | payer MEDICARE, OTHER ==
[~2018-06-03] MED LIST changes: -BUPIVACAINE HCL 0.25% 30 ML VIAL As Ordered; +CONRAY-43 43% 50ML VIAL (Q9960) As Ordered; +LIDOCAINE 1% MDV 20ML VIAL As Ordered; -TRIAMCINOLONE ACETONIDE SUSP 40 MG/ML VIAL (J3301) As Ordered; +methylPREDNISolone SUSP 40 MG/ML (DEPO-medrol) VIAL (J1030) As Ordered
== END ==
LOC: M RADPRO 09:33
DX: M25.551 Pain in right hip (principal); M16.11 Unilateral primary osteoarthritis, right hip
CPT/HCPCS: 20610

== ENCOUNTER → 2018-06-07 | Outpatient (CLI) | payer OTHER, MEDICARE | LOC: M PAIN 11:30 | DX: M51.27 Other intervertebral disc displacement, lumbosacral region (principal); M54.17 Radiculopathy, lumbosacral region; M19.90 Unspecified osteoarthritis, unspecified site; I10 Essential (primary) hypertension; E78.5 Hyperlipidemia, unspecified; Z79.82 Long term (current) use of aspirin; Z79.899 Other long term (current) drug therapy; Z88.8 Allergy status to other drugs, medicaments and biological substances; Z87.891 Personal history of nicotine dependence | CPT/HCPCS: G0463 ==

== ENCOUNTER → 2018-07-20 | Outpatient (CLI) | payer OTHER, MEDICARE ==
[~2018-07-20] MED LIST changes: +ALEV220T26 PO; +ASPI1TAB PO; +CALC600T60 PO; -CONRAY-43 43% 50ML VIAL (Q9960) As Ordered; +DEPA250T32 PO; +HYDR500C3 PO; +ISOVUE-M 300 61% 15ML VIAL (Q9967) As Ordered ONE; -LIDOCAINE 1% MDV 20ML VIAL As Ordered; +LIDOCAINE 1% SDV INJ 30 ML VIAL As Ordered ONE; +LISI10TA4 PO; +MELO15TA28 PO; +MULTCAP PO; +SIMV20TA2 PO; +TAMS1CAP17 PO; +TYLE325T5 PO; +VITA500T PO; +VITA500T53 PO; +alleve PO; -methylPREDNISolone SUSP 40 MG/ML (DEPO-medrol) VIAL (J1030) As Ordered; +methylPREDNISolone SUSP 40 MG/ML (DEPO-medrol) VIAL (J1030) As Ordered ONE
--- NOTE | 2018-07-20 14:20 | REP ---
Partial lumbar spine series: Six views . History: Injection procedure for pain. 48 seconds of fluoroscopy time is reported. Findings: A sequence of six fluoroscopically obtained last image hold procedural spot radiographs of the lumbar spine document needle position and contrast injection associated with injection procedure. Electronically Signed by Dieudonne Fournier MD 07/20/2018 02:12 P
--- NOTE | 2018-08-08 00:02 | ECWPNPC ---
PATIENT NAME: STEPHAN GARCIA : 1945 GENDER: MALE VISIT DATE: 07/20/2018 DISCHARGE DATE: 07/20/18 1114 VISIT LOCKED DATE TIME: PHYSICIAN: JESIKA PAIZ MD RESOURCE: JESIKA PAIZ MD REASON FOR APPOINTMENT 1. NF LESI HISTORY OF PRESENT ILLNESS HISTORY OF PRESENT ILLNESS: PAIN THE PATIENT DESCRIBES THE PAIN... FALL RISK SCREENING: SCREENING :NO FALLS IN THE PAST YEAR CURRENT MEDICATIONS TAKING LISINOPRIL 10 MG TABLET 1 TABLET ORALLY ONCE A DAY, NOTES: 0530 TAKING MELOXICAM 15 MG TABLET 1 TABLET ORALLY ONCE A DAY, NOTES: 0530 TAKING VITAMIN C 500 MG CAPSULE ORALLY DAILY, NOTES: 0530 TAKING ASPIRIN ADULT LOW STRENGTH 81 MG TABLET DELAYED RELEASE 1 TABLET ORALLY ONCE A DAY, NOTES: 0530 TAKING MULTIVITAMIN TABLET CHEWABLE ORALLY DAILY, NOTES: 0530 TAKING SIMVASTATIN 20 MG TABLET 1 TABLET IN THE EVENING ORALLY ONCE A DAY, NOTES: 07/19/18 1800 TAKING VITAMIN B12 500 MCG TABLET 1 TABLET ORALLY DAILY, NOTES: 0530 TAKING CALCIUM 600 MG TABLET 1 TABLET WITH MEALS ORALLY DAILY, NOTES: 0530 TAKING TAMSULOSIN HCL 0.4 MG CAPSULE 1 CAPSULE ORALLY ONCE A DAY, NOTES: 0530 TAKING ALEVE 220 MG TABLET 1 STRIP ORALLY EVERY 12 HRS, NOTES: NONE LATELY TAKING HYDROXYUREA 500 MG CAPSULE ORALLY , NOTES: 0530 MEDICATION LIST REVIEWED AND RECONCILED WITH THE PATIENT PAST MEDICAL HISTORY ARTTHRITIS HYPERTENSION HYPERLIPIDEMIA LOW BACK PAIN ENLARGED SPLEEN BILATERAL KIDNEY STONES INCREASED RED BLOOD CELL COUNT ALLERGIES CYMBALTA: HYPER AND JITTERY: SIDE EFFECTS SURGICAL HISTORY TONSILLECTOMY & ADENOIDECTOMY L KNEE ARTHROSCOPY FAMILY HISTORY NO FAMILY HISTORY DOCUMENTED. SOCIAL HISTORY GENERAL: TOBACCO USE ARE YOU A:FORMER SMOKER HOW LONG HAS IT BEEN SINCE YOU LAST SMOKED?> 10 YEARS RECREATIONAL DRUG USE DRUG USE?NO CAFFEINE CAFFEINE USE?YES 2-4 CUPS A DAY RELIGIOUS [id number] BAHAI LANGUAGE LANGUAGES SPOKEN:ST LUCIAN DIET: REGULAR. EXERCISE: NO REGULAR EXERCISE, WALKS, WOOD. MARITAL STATUS: . PAIN CLINIC PFS, CLERGY, PUBLIC HEALTH REFERRALS PFS REFERRAL NEEDED?NO CLERGY REFERRAL NEEDED?NO PUBLIC HEALTH REFERRAL NEEDED?NO WAS THE PROVIDER NOTIFIED OF ANY PERTINENT INFO?YES HAS THE PATIENT BEEN EDUCATED REGARDING HIS/HER PLAN OF CARE?YES HAS THE PATIENT BEEN EDUCATED REGARDING PAIN, THE RISK FOR PAIN, THE IMPORTANCE OF EFFECTIVE PAIN MANAGEMENT, AND THE PAIN ASSESSMENT PROCESS?YES ADVANCE DIRECTIVE ADVANCE DIRECTIVE DISCUSSED WITH PATIENT:YES HCP - GORDON GARCIA () REVIEWED WITH PATIENT 05/24/18 0969 JSREVIEWED WITH PATIENT 07/20/18 0216 JS. HOSPITALIZATION/MAJOR DIAGNOSTIC PROCEDURE T&A REVIEW OF SYSTEMS REVIEWED BY: PROVIDER: . CONSTITUTIONAL: ANY CHANGE IN YOUR MEDICAL CONDITION? NO . CHILLS NO . FEVER NO . INFECTION: DO YOU HAVE NEW INFECTIONS? NO . DO YOU HAVE HISTORY OF MRSA? NO . MUSCULOSKELETAL: ANY NEW PATTERNS OF PAIN OR NUMBNESS? NO . GASTROENTEROLOGY: ANY NEW CHANGE IN BOWEL CONTROL? NO . GENITOURINARY: ANY NEW CHANGE IN BLADDER CONTROL? NO . IS THERE A CHANCE YOU COULD BE ? NO . HEMATOLOGY/LYMPH: DO YOU TAKE ANY BLOOD THINNERS? (FOR EXAMPLE- COUMADIN, PLAVIX, AGGRENOX, PLATEL, PRADAXA, OR XARELTO) NO . WHEN WAS YOUR LAST DOSE? DATE: TIME: . NEUROLOGY: HAVE YOU FALLEN IN THE PAST 6 MONTHS? NO . ANY NEW EXTREMITY NUMBNESS OR WEAKNESS? YES, STATES LEFT LEG NUMBNESS AND HAS BECOME GRADUALLY WEAKER OVER THE PAST FEW WEEKS . CARDIOLOGY: DO YOU HAVE A PACEMAKER OR DEFIBRILLATOR? NO . RESPIRATORY: HAVE YOU BEEN SICK IN THE PAST WEEK? NO . FEVER NO . FLU LIKE SYMPTOMS? NO . COUGH NO . INTEGUMENTARY: DO YOU HAVE ANY RASHES OR OPEN SORES? NO . ALLERGIC/IMMUNO: ARE YOU ALLERGIC TO SHELLFISH OR IV DYE? NO . ANY NEW ALLERGIES? NO . PSYCHIATRIC: DO YOU HAVE THOUGHTS OF HURTING YOURSELF OR SOMEONE ELSE? NO . ARE YOU ABUSED, NEGLECTED, OR IN AN UNSAFE ENVIRONMENT? NO . ENDOCRINOLOGY: ARE YOU DIABETIC? NO . OTHER: DO YOU NEED ANY PRESCRIPTIONS? NO . IF YES, PLEASE LIST: ____ . ANY NEW PROBLEMS WITH YOUR MEDICATIONS? NO . WHEN DID YOU LAST EAT? ____07/19/18 1800 . WHEN DID YOU LAST DRINK? ____07/20/18 0530 . WHAT DID YOU LAST DRINK? ____WATER . NAME OF PERSON DRIVING YOU HOME? ____GORDON () . DO YOU HAVE ANY OTHER QUESTIONS OR CONCERNS NO . VITAL SIGNS WT 249.8 LBS, HT 68.5 IN, BMI 37.43 INDEX, BP 141/83 MM HG, HR 71 /MIN, RR 18 /MIN, TEMP 98 F, OXYGEN SAT % 96%, SAFE IN ENV? (Y/N) YES, NA INITIALS DE 08:48, REVIEWED BY: CARLO. ASSESSMENTS SPINAL STENOSIS OF LUMBAR REGION, UNSPECIFIED WHETHER NEUROGENIC CLAUDICATION PRESENT - M48.061 (PRIMARY) INTERVERTEBRAL DISC DISORDER WITH RADICULOPATHY OF LUMBAR REGION - M51.16 PROCEDURES PRE PROCEDURE DIAGNOSIS LUMBAR DISC DISORDER WITH RADICULOPATHY, LUMBAR SPINAL STENOSIS POST PROCEDURE DIAGNOSIS LUMBAR DISC DISORDER WITH RADICULOPATHY , LUMBAR SPINAL STENOSIS PROCEDURE LUMBAR EPIDURAL STEROID INJECTION UNDER FLUOROSCOPIC GUIDANCE SURGEON DR. JESIKA PAIZ PACKAGE SORTER NONE ANESTHESIA LOCAL PRE PROCEDURE NOTE THE PATIENT HAS A HISTORY OF CHRONIC LOW BACK PAIN. I EVALUATE THE PATIENT AND REVIEWED THE CHART. I WENT OVER THE RISKS, ALTERNATIVES, AND BENEFITS ASSOCIATED WITH THIS PROCEDURE. THE PATIENT WOULD LIKE TO PROCEED AND GIVE CONSENT TO PERFORMED THE PROCEDURE. THE PATIENT DENIES UNEXPLAINABLE WEIGHT LOSS, FEVER, CHILLS, OR NEW CHANGES IN URINARY OR BOWEL CONTROL. DESCRIPTION OF PROCEDURE THE PATIENT WAS BROUGHT TO THE PROCEDURE ROOM AND PLACED IN THE PRONE POSITION. THE LUMBOSACRAL AREA WAS CLEANED WITH BETADINE SOLUTION AND DRAPED ASEPTICALLY. THE PROCEDURE WAS DONE UNDER STERILE CONDITIONS. I CHECKED LATERALITY AND THE LEVEL WHERE THE PROCEDURE WAS GOING TO BE PERFORMED WITH THE PATIENT AND THE SUPPORTING STAFF AT THE MOMENT OF THE TIME OUT IN THE PROCEDURE ROOM. UNDER FLUOROSCOPIC GUIDANCE, THE TARGET POINT WAS SELECTED AT THE INTERLAMINAR LEVEL OF L4-L5. LIDOCAINE WAS USED TO NUMB THE SKIN AND THE SUBCUTANEOUS TISSUE BELOW IT. EPIDURAL TUOHY NEEDLE, 17-GAUGE, WAS ADVANCED UNDER FLUOROSCOPIC GUIDANCE AND FOLLOWING PATIENT FEEDBACK UNTIL THE EPIDURAL SPACE WAS REACHED, 7 CM DEEP INTO THE SKIN BY THE LOSS OF RESISTANCE TECHNIQUE. ISOVUE M DYE 30%, 0.25 ML, WAS INJECTED SHOWING ADEQUATE SPREAD OF THE DYE. THEN, A SOLUTION OF 3 ML OF NORMAL SALINE WITH DEPO-MEDROL 60 MG WAS INJECTED SLOWLY FOLLOWING PATIENT FEEDBACK. THERE WAS NO EVIDENCE OF BLOOD, PARESTHESIA OR CEREBROSPINAL FLUID DURING THE PROCEDURE. THE PATIENT WAS SENT TO THE RECOVERY ROOM. THE PATIENT WAS MOVING THE EXTREMITIES AND DOING WELL. THERE WAS NO COMPLICATION DURING THE PROCEDURE. FLUOROSCOPY TIME WAS 43 SECONDS. POST PROCEDURE NOTE THE PATIENT WILL BE SEEN IN A FOLLOW UP IN THE NEXT FEW WEEKS. INSTRUCTIONS WERE GIVEN, QUESTIONS WERE ANSWERED, AND THE PATIENT EXPRESSED UNDERSTANDING AND AGREES WITH THE PLAN. I, SUHAIL HEREDIA, DOCUMENTED THE ABOVE INFORMATION ACTING A SCRIBE FOR DR. PAIZ. I HAVE REVIEWED THE ABOVE DOCUMENT, WRITTEN BY SUHAIL MEJIAIBReal AND I VERIFY THAT IT IS ACCURATE. DIAGNOSTIC IMAGING [facility] FLUORO GUIDE SPINE INJECTION (PAIN)[id number] PROCEDURE CODES 6045F RADXPS IN END [id number] PXD [id number] LUMBAR/SACRAL W/ IMAGING DISPOSITION & COMMUNICATION FOLLOW UP 2 WEEKS ELECTRONICALLY SIGNED BY JESIKA PAIZ MD, MD ON 08/07/2018 AT 02:11 PM EST DISCLAIMER : THIS IS A VISIT SUMMARY EXTRACTED FROM THE [facility] CHART. IT IS NOT A COPY OF THE [facility] PROGRESS NOTE. JANUARY
== END ==
LOC: M PAIN 08:45
PROVIDERS: ATTEND Anesthesiology
DX: M48.061 Spinal stenosis, lumbar region without neurogenic claudication (principal); M51.16 Intervertebral disc disorders with radiculopathy, lumbar region; M19.90 Unspecified osteoarthritis, unspecified site; I10 Essential (primary) hypertension; E78.5 Hyperlipidemia, unspecified; R16.1 Splenomegaly, not elsewhere classified; Z87.442 Personal history of urinary calculi; Z87.891 Personal history of nicotine dependence; Z79.82 Long term (current) use of aspirin; Z79.1 Long term (current) use of non-steroidal anti-inflammatories (NSAID); Z79.899 Other long term (current) drug therapy; Z88.8 Allergy status to other drugs, medicaments and biological substances
CPT/HCPCS: 62323; J1030; Q9967

== ENCOUNTER → 2018-12-07 | Outpatient (REF) | payer MEDICARE ==
[~2018-12-07] MED LIST changes: -ASPI1TAB PO; +ASPI81TA26 PO; -ISOVUE-M 300 61% 15ML VIAL (Q9967) As Ordered ONE; -LIDOCAINE 1% SDV INJ 30 ML VIAL As Ordered ONE; +NAPR220C23 PO; +VITA500T17 PO; -VITA500T53 PO; -methylPREDNISolone SUSP 40 MG/ML (DEPO-medrol) VIAL (J1030) As Ordered ONE
== END ==
LOC: M LAB REF 18:43
PROVIDERS: ATTEND Internal Medicine Endocrinology, Diabetes & Metabolism
DX: E04.2 Nontoxic multinodular goiter (principal)

== ENCOUNTER → 2019-02-17 | Outpatient (CLI) | payer MEDICARE ==
[2019-02-17 09:43] LABS: BLOOD UREA NITROGEN 29 MG/DL (7-18); GLOMERULAR FILTRATION RATE > 60.0 (>42)
== END ==
LOC: M LAB 08:43
PROVIDERS: ATTEND Student in an Organized Health Care Education/Training Program
DX: Z01.818 Encounter for other preprocedural examination (principal)

== ENCOUNTER → 2019-02-17 | Outpatient (CLI) | payer MEDICARE ==
[~2019-02-17] MED LIST changes: +CONRAY-43 43% 50ML VIAL (Q9960) As Ordered ONE; +LIDOCAINE 1% MDV 20ML VIAL As Ordered ONE; -SIMV20TA2 PO; +SIMV20TA22 PO; +TRIAMCINOLONE ACETONIDE SUSP 40 MG/ML VIAL (J3301) As Ordered ONE; +methylPREDNISolone 80MG/ML SUSP 1ML VIAL (J1040) XX ONE; +methylPREDNISolone SUSP 40 MG/ML (DEPO-medrol) VIAL (J1030) As Ordered ONE
--- NOTE | 2019-02-18 18:31 | REP ---
Reason For Exam/Comment: Osteoarthritis of the right hip, pain Procedure: Right hip arthrocentesis The procedure was performed by YONNY Dickinson, under the direct supervision of Dr. Penaloza. The benefits and risks including but not limited to pain, infection, bleeding and anaphylaxis were explained to the patient and informed consent was obtained both verbally and written. Directly prior to the start of the procedure, a formal timeout was completed in the procedure room. The right femoral neck was localized using fluoroscopic guidance. The skin was prepped and draped in the usual sterile fashion. 5 mL of 1% lidocaine was used as a local anesthetic. Using fluoroscopic guidance a 22-gauge spinal needle was inserted and advanced to the right femoral neck joint space. 2 mL of Conray 43 was injected to verify needle placement. A 6 mL solution containing a 5 mL 1% lidocaine 10 mg/ml and 1 ml of Depo-Medrol 80 mg/ml was injected into the joint. The needle was removed and hemostasis was achieved. The patient tolerated the procedure well and there were no immediate complications. 0.2 minutes of fluoroscopy time was utilized for this procedure. Some fluoroscopic images are performed with last image hold technology. These images require no additional radiation. Reviewed by YONNY Pelletier 02/17/2019 01:26 P Electronically Signed by Chance Penaloza MD 02/18/2019 06:23 P
== END ==
LOC: M RADPRO 09:01
PROVIDERS: ATTEND Physician Assistant Surgical
DX: M25.551 Pain in right hip (principal); M16.11 Unilateral primary osteoarthritis, right hip
CPT/HCPCS: 20610; 36415; 77002; 82565; 84520; J1030; Q9960

== ENCOUNTER → 2019-02-23 | Outpatient (CLI) | payer MEDICARE ==
[~2019-02-23] MED LIST changes: -CONRAY-43 43% 50ML VIAL (Q9960) As Ordered ONE; +ISOVUE-370 76% 100ML VIAL (Q9967) As Ordered ONE; -LIDOCAINE 1% MDV 20ML VIAL As Ordered ONE; +SIMV20TA2 PO; -SIMV20TA22 PO; -TRIAMCINOLONE ACETONIDE SUSP 40 MG/ML VIAL (J3301) As Ordered ONE; -methylPREDNISolone 80MG/ML SUSP 1ML VIAL (J1040) XX ONE; -methylPREDNISolone SUSP 40 MG/ML (DEPO-medrol) VIAL (J1030) As Ordered ONE
--- NOTE | 2019-02-24 09:28 | REPVR ---
EXAM: CT Neck With Contrast EXAM DATE/TIME: 02/23/2019 1:06 PM CLINICAL HISTORY: 73 years old, male; Condition or disease; Thyroid disorder; Other: Nodules; Additional info: Multiple thyroid nodules TECHNIQUE: Imaging protocol: Axial computed tomography images of the neck with intravenous contrast. Coronal and sagittal reformatted images were created and reviewed. Radiation optimization: All CT scans at this facility use at least one of these dose optimization techniques: automated exposure control; mA and/or kV adjustment per patient size (includes targeted exams where dose is matched to clinical indication); or iterative reconstruction. Contrast material: ISOVUE 370;Contrast volume: 75 ml;Contrast route: IV; COMPARISON: No relevant prior studies available. FINDINGS: Skull base: Unremarkable. Paranasal sinues: Clear. Mastoid air cells: Clear. Nasopharynx: Unremarkable. Suprahyoid neck: Unremarkable oropharynx, oral cavity, parapharyngeal space, and retropharyngeal space. Infrahyoid neck: There is soft tissue fullness and thickening of the vallecula on the RIGHT, image 40-41/ 201. This abuts the RIGHT lateral glossoepiglottic fold. Unremarkable larynx. Epiglottis is not thickened. The piriform sinuses are intact. Salivary glands: Unremarkable. Thyroid: Significantly enlarged LEFT thyroid lobe measures approximately 10 cm x 4.5 cm x 4.1 cm and demonstrates heterogeneous attenuation.There are areas solid and cystic appearing nodules and a few tiny calcifications. This causes rightward shifting of the distal aerodigestive tract and proximal trachea. Vascular structures: There appears to be at least moderate stenosis of the proximal LEFT internal carotid artery, images 35-39/201. Aerodigestive tract: Patent. Fluid collections: None identified. Bones: Degenerative changes. Straightening of the normal cervical lordosis likely secondary to muscle spasm. Moderate disc disease at C3-4 which causes mild mass effect on the cord. Lung apices: Small scattered areas of mosaic attenuation in the lung apices as seen with small airways disease. IMPRESSION: 1. Significantly enlarged and heterogeneous LEFT thyroid lobe which extends to the isthmus and causes rightward shifting of the distal aerodigestive tract and proximal trachea. There are solid, cystic and complex appearing nodules. Comparison to prior ultrasound if available is recommended for further assessment. 2. There is soft tissue fullness and thickening at the vallecula and lateral glossoepiglottic fold on the RIGHT. Findings are indeterminate. Differential diagnosis includes infectious or neoplastic process. 3. Moderate central disc herniation at C3-4 which causes mild mass effect on the cord. 4. There appears to be at least moderate stenosis of the proximal LEFT internal carotid artery. Electronically signed by: Luz Alexandra On 02/24/2019 09:28:26 AM
== END ==
LOC: M RAD 12:04
PROVIDERS: ATTEND Student in an Organized Health Care Education/Training Program
DX: E04.2 Nontoxic multinodular goiter (principal)

== ENCOUNTER → 2021-06-03 | Outpatient (CLI) | payer MEDICARE ==
[~2021-06-03] MED LIST changes: +COVI2.5V IM; -ISOVUE-370 76% 100ML VIAL (Q9967) As Ordered ONE; +LISI10TA22 PO; -LISI10TA4 PO; +MULT-90 PO; -SIMV20TA2 PO; +SIMV20TA22 PO; +VITA-243 PO; -VITA500T PO
== END ==
LOC: M PAIN 11:30
PROVIDERS: ATTEND Nurse Practitioner Family
DX: M51.16 Intervertebral disc disorders with radiculopathy, lumbar region (principal); G47.30 Sleep apnea, unspecified; Z87.891 Personal history of nicotine dependence; Z88.8 Allergy status to other drugs, medicaments and biological substances; Z79.82 Long term (current) use of aspirin; Z79.899 Other long term (current) drug therapy

== ENCOUNTER → 2021-06-30 | Outpatient (CLI) | payer MEDICARE | LOC: M PAIN 11:00 | PROVIDERS: ATTEND Nurse Practitioner Family | DX: M51.16 Intervertebral disc disorders with radiculopathy, lumbar region (principal); G47.30 Sleep apnea, unspecified; Z87.891 Personal history of nicotine dependence; Z88.8 Allergy status to other drugs, medicaments and biological substances; Z79.82 Long term (current) use of aspirin; Z79.899 Other long term (current) drug therapy ==

== ENCOUNTER → 2021-07-09 | Outpatient (CLI) | payer MEDICARE ==
--- NOTE | 2021-07-10 09:03 | REP ---
INDICATION: LOW BACK PAIN COMPARISON: MRI dated 04/02/2021 TECHNIQUE: AP, lateral, and flexion/extension views of the lumbar spine. FINDINGS: Chronic levoconvex scoliosis and advanced multilevel degenerative changes including endplate sclerosis, disc space narrowing, osteophytosis and facet arthropathy. No obvious acute subluxation. No evidence for acute fracture/compression injury. IMPRESSION: 1. Osteopenia with chronic levoconvex scoliosis and advanced multilevel degenerative spondylosis. <Electronically signed by Fab Andrews > 07/10/21 0900
== END ==
LOC: M SOG 09:44
PROVIDERS: ATTEND Orthopaedic Surgery
DX: M54.50 Low back pain, unspecified (principal); M41.87 Other forms of scoliosis, lumbosacral region; M47.817 Spondylosis without myelopathy or radiculopathy, lumbosacral region

== ENCOUNTER → 2021-11-21 | Outpatient (CLI) | payer MEDICARE | LOC: M LABSMTC 10:37 | PROVIDERS: ATTEND Anesthesiology | DX: Z01.812 Encounter for preprocedural laboratory examination (principal); Z20.822 Contact with and (suspected) exposure to COVID-19 ==

== ENCOUNTER → 2021-11-25 | Outpatient (CLI) | payer MEDICARE ==
[~2021-11-25] MED LIST changes: +ISOVUE-M 300 61% 15ML VIAL As Ordered ONE; +LIDOCAINE 1% SDV 30ML VIAL As Ordered ONE; +methylPREDNISolone SUSP 40MG/ML 1ML VIAL (DEPO MEDROL) As Ordered ONE
[2021-11-25 10:55] VITALS: BP 156/72
== END ==
LOC: M IRPRO 09:11
PROVIDERS: ATTEND Anesthesiology
DX: M51.16 Intervertebral disc disorders with radiculopathy, lumbar region (principal); G89.29 Other chronic pain; G47.30 Sleep apnea, unspecified; M19.90 Unspecified osteoarthritis, unspecified site; Z91.09 Other allergy status, other than to drugs and biological substances; Z86.16 Personal history of COVID-19; Z87.891 Personal history of nicotine dependence
CPT/HCPCS: 62323; J1030; Q9967

== ENCOUNTER → 2022-03-23 | Outpatient (CLI) | payer MEDICARE ==
[~2022-03-23] MED LIST changes: -ISOVUE-M 300 61% 15ML VIAL As Ordered ONE; -LIDOCAINE 1% SDV 30ML VIAL As Ordered ONE; -methylPREDNISolone SUSP 40MG/ML 1ML VIAL (DEPO MEDROL) As Ordered ONE
== END ==
LOC: M PAIN 11:00
PROVIDERS: ATTEND Nurse Practitioner Family
DX: G89.29 Other chronic pain (principal); M51.16 Intervertebral disc disorders with radiculopathy, lumbar region; M19.90 Unspecified osteoarthritis, unspecified site; I10 Essential (primary) hypertension; E78.5 Hyperlipidemia, unspecified; R16.1 Splenomegaly, not elsewhere classified; K44.9 Diaphragmatic hernia without obstruction or gangrene; H83.09 Labyrinthitis, unspecified ear; G47.30 Sleep apnea, unspecified; D45 Polycythemia vera; Z87.442 Personal history of urinary calculi; Z87.891 Personal history of nicotine dependence; Z79.891 Long term (current) use of opiate analgesic; Z79.899 Other long term (current) drug therapy; Z88.8 Allergy status to other drugs, medicaments and biological substances

== ENCOUNTER → 2022-06-09 | Outpatient (CLI) | payer MEDICARE | LOC: M PAIN 09:15 | PROVIDERS: ATTEND Nurse Practitioner Family | DX: M51.16 Intervertebral disc disorders with radiculopathy, lumbar region (principal); G89.29 Other chronic pain; I10 Essential (primary) hypertension; G47.30 Sleep apnea, unspecified; Z87.891 Personal history of nicotine dependence; Z88.8 Allergy status to other drugs, medicaments and biological substances; Z79.82 Long term (current) use of aspirin; Z79.899 Other long term (current) drug therapy ==

== ENCOUNTER → 2022-09-01 | Outpatient (CLI) | payer MEDICARE ==
[~2022-09-01] MED LIST changes: +LIDOCAINE 1% MDV 20ML VIAL As Ordered ONE
[2022-09-01 12:50] VITALS: BP 147/81
[2022-09-01 13:06] LABS: BASO # 0.1 10^3/uL (0.0-0.2); EOS # 0.1 10^3/uL (0.0-0.5); EOS % 1.8 % (0.0-3.0); HEMATOCRIT 44.9 % (42.0-52.0); HEMOGLOBIN 14.1 g/dl (13.5-17.5); LYMPH # 0.7 10^3/uL (1.5-5.0); LYMPH % 13.1 % (24.0-44.0); MEAN CORPUSCULAR HEMOGLOBIN 29.3 pg (27.0-33.0); MEAN CORPUSCULAR HGB CONC 31.4 g/dl (32.0-36.5); MEAN CORPUSCULAR VOLUME 93.2 fl (80.0-96.0); MONO # 0.5 10^3/uL (0.0-0.8); NEUTROPHILS # 3.7 10^3/uL (1.5-8.5); NEUTROPHILS % 72.7 % (36.0-66.0); PLATELET COUNT, AUTOMATED 220 10^3/uL (150-450); RED BLOOD COUNT 4.82 10^6/uL (4.30-6.10); WHITE BLOOD COUNT 5.1 10^3/uL (4.0-10.0)
== END ==
LOC: M IRPRO 11:29
PROVIDERS: ATTEND Internal Medicine Medical Oncology
DX: D45 Polycythemia vera (principal)

== ENCOUNTER → 2022-10-05 | Outpatient (CLI) | payer MEDICARE ==
[~2022-10-05] MED LIST changes: -LIDOCAINE 1% MDV 20ML VIAL As Ordered ONE
== END ==
LOC: M LABSMTC 09:22
PROVIDERS: ATTEND Anesthesiology
DX: Z01.812 Encounter for preprocedural laboratory examination (principal); G47.33 Obstructive sleep apnea (adult) (pediatric); I10 Essential (primary) hypertension; Z20.822 Contact with and (suspected) exposure to COVID-19; Z79.1 Long term (current) use of non-steroidal anti-inflammatories (NSAID); Z79.82 Long term (current) use of aspirin; Z79.899 Other long term (current) drug therapy
CPT/HCPCS: 87635; G0463

== ENCOUNTER → 2022-10-06 | Outpatient (CLI) | payer MEDICARE ==
[~2022-10-06] MED LIST changes: +ISOVUE-M 300 61% 15ML VIAL As Ordered ONE; +LIDOCAINE 1% SDV 30ML VIAL As Ordered ONE; +methylPREDNISolone SUSP 40MG/ML 1ML VIAL (DEPO MEDROL) As Ordered ONE
== END ==
LOC: M PAIN 10:00
PROVIDERS: ATTEND Anesthesiology
DX: M51.16 Intervertebral disc disorders with radiculopathy, lumbar region (principal); G89.29 Other chronic pain; G47.30 Sleep apnea, unspecified; I10 Essential (primary) hypertension; Z87.891 Personal history of nicotine dependence; Z88.8 Allergy status to other drugs, medicaments and biological substances; Z79.82 Long term (current) use of aspirin; Z79.899 Other long term (current) drug therapy
CPT/HCPCS: 62323; J1030; Q9967

== ENCOUNTER → 2023-01-05 | Outpatient (CLI) | payer MEDICARE ==
[~2023-01-05] MED LIST changes: -ISOVUE-M 300 61% 15ML VIAL As Ordered ONE; -LIDOCAINE 1% SDV 30ML VIAL As Ordered ONE; -methylPREDNISolone SUSP 40MG/ML 1ML VIAL (DEPO MEDROL) As Ordered ONE
== END ==
LOC: M PAIN 11:00
PROVIDERS: ATTEND Nurse Practitioner Family
DX: M51.16 Intervertebral disc disorders with radiculopathy, lumbar region (principal); G89.29 Other chronic pain; I10 Essential (primary) hypertension; E78.5 Hyperlipidemia, unspecified; M19.90 Unspecified osteoarthritis, unspecified site; G47.30 Sleep apnea, unspecified; D45 Polycythemia vera; Z87.891 Personal history of nicotine dependence; Z79.82 Long term (current) use of aspirin; Z79.899 Other long term (current) drug therapy; Z88.8 Allergy status to other drugs, medicaments and biological substances

== ENCOUNTER → 2023-01-28 | Outpatient (CLI) | payer MEDICARE ==
[~2023-01-28] MED LIST changes: +ISOVUE-M 300 61% 15ML VIAL As Ordered ONE; +LIDOCAINE 1% SDV 30ML VIAL As Ordered ONE; +methylPREDNISolone SUSP 40MG/ML 1ML VIAL (DEPO MEDROL) As Ordered ONE
== END ==
LOC: M PAIN 09:30
PROVIDERS: ATTEND Anesthesiology
DX: M51.16 Intervertebral disc disorders with radiculopathy, lumbar region (principal); G89.29 Other chronic pain; G47.30 Sleep apnea, unspecified; I10 Essential (primary) hypertension; Z96.652 Presence of left artificial knee joint; Z87.891 Personal history of nicotine dependence; Z88.8 Allergy status to other drugs, medicaments and biological substances; Z79.82 Long term (current) use of aspirin; Z79.899 Other long term (current) drug therapy
CPT/HCPCS: 62323; J1030; Q9967

== ENCOUNTER → 2023-03-04 | Outpatient (CLI) | payer MEDICARE ==
[~2023-03-04] MED LIST changes: -ISOVUE-M 300 61% 15ML VIAL As Ordered ONE; -LIDOCAINE 1% SDV 30ML VIAL As Ordered ONE; -methylPREDNISolone SUSP 40MG/ML 1ML VIAL (DEPO MEDROL) As Ordered ONE
== END ==
LOC: M PAIN 11:15
PROVIDERS: ATTEND Nurse Practitioner Family
DX: M51.16 Intervertebral disc disorders with radiculopathy, lumbar region (principal); G89.29 Other chronic pain; I10 Essential (primary) hypertension; Z96.652 Presence of left artificial knee joint; Z87.891 Personal history of nicotine dependence; Z88.8 Allergy status to other drugs, medicaments and biological substances; Z79.82 Long term (current) use of aspirin; Z79.899 Other long term (current) drug therapy

== ENCOUNTER → 2023-06-18 | Outpatient (CLI) | payer MEDICARE ==
[~2023-06-18] MED LIST changes: +ISOVUE-M 300 61% 15ML VIAL As Ordered ONE; +LIDOCAINE 1% SDV 30ML VIAL As Ordered ONE; +methylPREDNISolone SUSP 40MG/ML 1ML VIAL (DEPO MEDROL) As Ordered ONE
== END ==
LOC: M PAIN 08:30
PROVIDERS: ATTEND Anesthesiology
DX: M51.16 Intervertebral disc disorders with radiculopathy, lumbar region (principal); G89.29 Other chronic pain; Z87.891 Personal history of nicotine dependence; Z88.8 Allergy status to other drugs, medicaments and biological substances; Z79.82 Long term (current) use of aspirin; Z79.899 Other long term (current) drug therapy
CPT/HCPCS: 62323; J1030; Q9967

== ENCOUNTER → 2023-07-20 | Outpatient (CLI) | payer MEDICARE ==
[~2023-07-20] MED LIST changes: -ISOVUE-M 300 61% 15ML VIAL As Ordered ONE; -LIDOCAINE 1% SDV 30ML VIAL As Ordered ONE; +LISI20TA33; -methylPREDNISolone SUSP 40MG/ML 1ML VIAL (DEPO MEDROL) As Ordered ONE
== END ==
LOC: M PAIN 11:00
PROVIDERS: ATTEND Nurse Practitioner Family
DX: M51.16 Intervertebral disc disorders with radiculopathy, lumbar region (principal); G89.29 Other chronic pain; Z87.891 Personal history of nicotine dependence; Z88.8 Allergy status to other drugs, medicaments and biological substances; Z79.82 Long term (current) use of aspirin; Z79.899 Other long term (current) drug therapy

== ENCOUNTER → 2023-09-02 | Outpatient (CLI) | payer MEDICARE | LOC: M PAIN 09:30 | PROVIDERS: ATTEND Nurse Practitioner Family | DX: M51.16 Intervertebral disc disorders with radiculopathy, lumbar region (principal); G89.29 Other chronic pain; I10 Essential (primary) hypertension; E78.5 Hyperlipidemia, unspecified; D45 Polycythemia vera; Z87.891 Personal history of nicotine dependence; Z79.1 Long term (current) use of non-steroidal anti-inflammatories (NSAID); Z79.82 Long term (current) use of aspirin; Z79.899 Other long term (current) drug therapy; Z88.8 Allergy status to other drugs, medicaments and biological substances ==

== ENCOUNTER → 2023-09-10 | Outpatient (CLI) | payer MEDICARE | LOC: M PAIN 17:00 | PROVIDERS: ATTEND Nurse Practitioner Family | DX: M51.16 Intervertebral disc disorders with radiculopathy, lumbar region (principal); G89.29 Other chronic pain; D45 Polycythemia vera; I10 Essential (primary) hypertension; E78.5 Hyperlipidemia, unspecified; Z87.891 Personal history of nicotine dependence; Z79.82 Long term (current) use of aspirin; Z79.1 Long term (current) use of non-steroidal anti-inflammatories (NSAID); Z79.899 Other long term (current) drug therapy; Z88.8 Allergy status to other drugs, medicaments and biological substances ==

== ENCOUNTER → 2024-04-20 | Outpatient (CLI) | payer MEDICARE ==
[~2024-04-20] MED LIST changes: +FINA5TAB2 PO; -LISI20TA33; +LISI20TA33 PO
== END ==
LOC: M PAIN 15:00
PROVIDERS: ATTEND Nurse Practitioner Family
DX: M51.16 Intervertebral disc disorders with radiculopathy, lumbar region (principal); G89.29 Other chronic pain; M19.90 Unspecified osteoarthritis, unspecified site; I10 Essential (primary) hypertension; E78.5 Hyperlipidemia, unspecified; D45 Polycythemia vera; Z87.891 Personal history of nicotine dependence; Z79.82 Long term (current) use of aspirin; Z79.899 Other long term (current) drug therapy; Z88.8 Allergy status to other drugs, medicaments and biological substances

== ENCOUNTER → 2024-06-15 | Outpatient (CLI) | payer MEDICARE ==
[~2024-06-15] MED LIST changes: +ISOVUE-M 300 61% 15ML VIAL As Ordered ONE; +LIDOCAINE 1% SDV 30ML VIAL As Ordered ONE; +dexAMETHasone 10MG/1ML VIAL PRES.FREE As Ordered ONE
== END ==
LOC: M PAIN 10:00
PROVIDERS: ATTEND Anesthesiology
DX: M51.16 Intervertebral disc disorders with radiculopathy, lumbar region (principal); G89.29 Other chronic pain; I10 Essential (primary) hypertension; E78.5 Hyperlipidemia, unspecified; D45 Polycythemia vera; Z87.891 Personal history of nicotine dependence; Z79.82 Long term (current) use of aspirin; Z79.899 Other long term (current) drug therapy
CPT/HCPCS: 64483; J0665; J1100; Q9967

== ENCOUNTER → 2024-07-28 | Outpatient (CLI) | payer MEDICARE ==
[~2024-07-28] MED LIST changes: -ISOVUE-M 300 61% 15ML VIAL As Ordered ONE; -LIDOCAINE 1% SDV 30ML VIAL As Ordered ONE; -dexAMETHasone 10MG/1ML VIAL PRES.FREE As Ordered ONE
== END ==
LOC: M PAIN 11:30
PROVIDERS: ATTEND Nurse Practitioner Family
DX: M47.816 Spondylosis without myelopathy or radiculopathy, lumbar region (principal); M51.16 Intervertebral disc disorders with radiculopathy, lumbar region; G89.29 Other chronic pain; Z79.82 Long term (current) use of aspirin; Z79.899 Other long term (current) drug therapy; Z86.16 Personal history of COVID-19; Z87.891 Personal history of nicotine dependence; Z88.8 Allergy status to other drugs, medicaments and biological substances

== ENCOUNTER → 2024-08-17 | Outpatient (CLI) | payer MEDICARE | LOC: M PAIN 11:00 | PROVIDERS: ATTEND Anesthesiology | DX: M51.16 Intervertebral disc disorders with radiculopathy, lumbar region (principal); M47.816 Spondylosis without myelopathy or radiculopathy, lumbar region; G89.29 Other chronic pain; I10 Essential (primary) hypertension; E78.5 Hyperlipidemia, unspecified; Z79.82 Long term (current) use of aspirin; Z79.899 Other long term (current) drug therapy; Z88.8 Allergy status to other drugs, medicaments and biological substances | CPT/HCPCS: 76000; G0463 ==

== ENCOUNTER → 2025-02-15 | Outpatient (REF) | payer MEDICARE ==
[~2025-02-15] MED LIST changes: -DEPA250T32 PO; +DIVA-65 PO
[2025-02-15 17:33] LABS: APPEARANCE, URINE CLEAR (CLEAR); BACTERIA, URINE AUTO NEGATIVE (NEGATIVE); BILIRUBIN, URINE AUTO NEGATIVE (NEGATIVE); BLOOD, URINE BLOOD NEGATIVE (NEGATIVE); GLUCOSE, URINE (UA) AUTO NEGATIVE (NEGATIVE); KETONE, URINE AUTO NEGATIVE (NEGATIVE); LEUKOCYTE ESTERASE, URINE AUTO NEGATIVE (NEGATIVE); NITRITE, URINE AUTO NEGATIVE (NEGATIVE); PROTEIN, URINE AUTO NEGATIVE (NEGATIVE); RBC, URINE AUTO 1 /HPF (0-3); SPECIFIC GRAVITY URINE AUTO 1.013 (1.002-1.035); SQUAMOUS EPITHELIAL CELL UR AU 0 /HPF (0-6); UROBILINOGEN, URINE AUTO 0.2 mg/dL (0.0-2.0); WBC, URINE AUTO 2 /HPF (0-3)
== END ==
LOC: M SMT 16:50
PROVIDERS: ATTEND Nurse Practitioner Family
DX: Z87.448 Personal history of other diseases of urinary system (principal)